=== PATIENT | male | born 1985 | race Caucasian/White ===

== ENCOUNTER 2021-02-09 11:02 | Emergency (ER) | payer MEDICARE, SELFPAY ==
[2021-02-09 11:08] VITALS: BP 115/65; PULSE 135; RESP 20; TEMP 36.6; O2SAT 95; BMI 18.8
--- NOTE | 2021-02-09 11:29 | ECG_ITS ---
Test Reason : TACHYCARDIA Blood Pressure : / mmHG Vent. Rate : 100 BPM Atrial Rate : 100 BPM P-R Int : 128 ms QRS Dur : 130 ms QT Int : 378 ms P-R-T Axes : 042 088 027 degrees QTc Int : 487 ms Normal sinus rhythm Right bundle branch block Abnormal ECG When compared with ECG of 13-JAN-2018 11:51, T wave inversion now evident in Anterior leads Referred By: Marybel Burkett Electronically Signed By:LEYLA KLEIN
--- NOTE | 2021-02-09 11:30 | ED.ALCOHOL ---
HPI - Alcohol General Chief Complaint: ETOH/Substance Use Stated Complaint: DETOX Time Seen by Provider: 02/09/21 11:21 Source: patient Mode of arrival: ambulatory Limitations: no limitations History of Present Illness HPI narrative: 35-year-old male to daily alcohol drinker, last drink was last night, presented today seeking detox from alcohol, patient had a history of alcohol withdrawal with hospitalization in the past, during the interview noted that patient has involuntary tremors and tachycardic. Patient declined any SI or HI or hallucination. Related Data Allergies Allergy/AdvReac Type Severity Reaction Status Date / Time No Known Drug Allergies Allergy Unknown UNKNOWN Unverified 08/08/20 19:26 [NO KNOWN DRUG ALLERGIES] Review of Systems Review of Systems: All other systems are reviewed and are negative Constitutional: Reports as per HPI and Reports no additional constitutional complaints Eyes: Reports as per HPI and Reports no additional eye complaints Reports system reviewed and no additional complaints, except as documented Cardiovascular: Reports as per HPI and Reports no additional cardiovascular complaints Respiratory: Reports as per HPI and Reports no additional respiratory complaints Gastrointestinal: Reports as per HPI and Reports no additional gastrointestinal complaints Genitourinary: Reports no additional female genitourinary complaints Musculoskeletal: Reports no additional musculoskeletal complaints Skin/Breast: Reports system reviewed and no additional complaints, except as docu Psychiatric: Reports no additional psychiatric complaints Endocrine: Reports no additional endocrine complaints Hematologic/Lymphatic: Reports no additional hematologic/lymphatic complaints Allergic/Immunologic: Reports no additional allergic/immunologic complaints Reports system reviewed and no additional complaints, except as documented and Reports Abnormal speech present PMFSH Past Medical History Medical History Alcohol abuse Anxiety COPD (chronic obstructive pulmonary disease) Depression Schizophrenia Social History Social History Alcohol intake: current Smoking Status: Current every day smoker Smoked in Last 30 Days: Yes Use of substances other than those prescribed or required for medical reasons: No Advance Directives: No Advance Directives Information Provided: No Physical Exam Vital Signs: Vital Signs: Last Vital Signs Temp 98.7 F 02/09/21 14:31 Pulse 86 02/09/21 14:31 Resp 13 02/09/21 14:31 BP 118/85 02/09/21 14:31 Pulse Ox 95 02/09/21 14:31 Body Mass Index 18.8 Vital signs have been reviewed as appeared to be correct. Blood pressure normal. Heart rate: Tachycardia. Respiration rate normal. Temperature normal. Oxygen saturation normal. Appearance: Alert. Oriented X3. No acute distress. Appear anxious Head: Normal external exam. Normocephalic. Atraumatic. No Serrano signs noted. No raccoon eyes noted Eyes: PERRLA. EOMI. Conjunctiva and sclera normal. Eyelids normal. ENT: TM's Normal. Pharynx normal. Uvula midline. Moist mucous membranes. No trismus noted. No drooling noted. No muffled voice noted. Neck: Normal inspection. Neck supple. FROM. No adenopathy. Thyroid Normal. No meningeal signs. No neck mass noted. CVS: Tachycardia. Heart sound normal. No murmurs noted. Pulses normal throughout. Respiratory: No respiratory distress. Painless inspiration. Breath sounds normal. No wheezes/rales/rhonchi noted. Chest nontender. No accessory muscle usage noted or decreased air movement noted. Abdomen: Soft and nontender. Bowel sounds normal in all 4 quadrants. No distention noted. No organomegaly noted. No visible injury noted. Back: No CVA tenderness. Full range of motion noted. Skin: Skin warm and dry. Normal skin color. Normal skin turgor. No rashes/lesions/lacerations noted. Extremities: Bilateral involuntarily tremors Neuro: Oriented X 3. No motor deficit. No sensory deficit. Reflexes normal. Course Course Course Narrative: 14:55. 35-year-old male who is chronic alcoholic, last drink was yesterday alcohol level less than 10, patient came in was seeking for detox, initially patient had a heart rate of 130, patient received 2 L of IV fluids now heart rate is normalizing, repeat physical exam show no sign of alcohol withdrawal at this point, patient was provided a list of detox places patient is trying to make phone calls from emergency department but requesting to go home and make calls from home. Patient is stable to be discharged. [facility] - Alcohol Lab Data Attestation: I reviewed the patient's lab results. Result diagrams: 02/09/21 12:08 02/09/21 12:08 Labs: Lab Results 02/09/21 02/09/21 02/09/21 Range/Units 12:08 12:08 12:08 WBC 8.1 (4.8-10.8) X10*3/uL RBC 4.50 L (4.60-5.80) X10*6/uL Hgb 13.5 L (14.0-18.0) g/dl Hct 39.3 L (42-52) % MCV 87.3 (80-98) fL MCH 30.0 (27.0-33.0) pg MCHC 34.4 (31.0-36.0) g/dl RDW 12.1 (11.0-16.0) % Plt Count 245 (160-400) X10*3/uL MPV 9.2 L (9.4-12.4) fL Immature Gran % (Auto) 0.1 (0.0-0.4) % Neut % (Auto) 51.6 (45-73) % Lymph % (Auto) 28.2 (20-40) % Dolores % (Auto) 7.8 (2-11) % Eos % (Auto) 11.8 H (0-4) % Baso % (Auto) 0.5 (0-2) % Lymph # (Auto) 2.3 (1.2-4.9) X10*3/uL [place] # (Auto) 0.6 (0.1-1.2) X10*3/uL Eos # (Auto) 1.0 H (0.0-0.4) X10*3/uL Baso # (Auto) 0.0 (0.0-0.2) X10*3/uL Abs Immat Gran (auto) 0.01 (0.00-0.03) X10*3/uL Absolute Neuts (auto) 4.2 (2.0-8.3) X10*3/uL Absolute Nucleated RBC 0.000 (0.0-0.012) X10*3/uL Nucleated RBC % (auto) 0.0 (0.0-0.2) /100WBC Sodium 139 (135-145) mmol/L Potassium 4.0 (3.3-5.1) mmol/L Chloride 102 (96-108) mmol/L Carbon Dioxide 25 (22-29) mmol/L Anion Gap 16 (12-20) BUN 7 L (9-16) mg/dL Creatinine 0.69 (0.5-1.4) mg/dL Estim Creat Clear Calc 115.0 Estimated GFR > 60 Random Glucose 123 H (60-115) mg/dL Calcium 8.9 (8.4-10.2) mg/dL Total Bilirubin < 0.2 (0.0-1.0) mg/dL Direct Bilirubin < 0.2 (0.0-0.5) mg/dL AST 47 H (5-37) U/L ALT 60 H (0-40) U/L Alkaline Phosphatase 69 (39-117) U/L Total Protein 6.6 (6.5-8.0) g/dL Albumin 4.0 (3.5-5.0) g/dL Lipase 8 (8-78) U/L Urine Color Urine Appearance Urine pH (5.0-8.0) Ur Specific [place] (1.005-1.025) Urine Protein (NEG-TRACE) MG/DL Urine Glucose (UA) (NEG) MG/DL Urine Ketones (NEG) MG/DL Urine Blood (NEG) Urine Nitrite (NEG) Ur Leukocyte Esterase (NEG) Ethyl Alcohol < 10 mg/dL 02/09/21 Range/Units 14:42 WBC (4.8-10.8) X10*3/uL RBC (4.60-5.80) X10*6/uL Hgb (14.0-18.0) g/dl Hct (42-52) % MCV (80-98) fL MCH (27.0-33.0) pg MCHC (31.0-36.0) g/dl RDW (11.0-16.0) % Plt Count (160-400) X10*3/uL MPV (9.4-12.4) fL Immature Gran % (Auto) (0.0-0.4) % Neut % (Auto) (45-73) % Lymph % (Auto) (20-40) % Dol[place] % (Auto) (2-11) % Eos % (Auto) (0-4) % Baso % (Auto) (0-2) % Lymph # (Auto) (1.2-4.9) X10*3/uL [place] # (Auto) (0.1-1.2) X10*3/uL Eos # (Auto) (0.0-0.4) X10*3/uL Baso # (Auto) (0.0-0.2) X10*3/uL Abs Immat Gran (auto) (0.00-0.03) X10*3/uL Absolute Neuts (auto) (2.0-8.3) X10*3/uL Absolute Nucleated RBC (0.0-0.012) X10*3/uL Nucleated RBC % (auto) (0.0-0.2) /100WBC Sodium (135-145) mmol/L Potassium (3.3-5.1) mmol/L Chloride (96-108) mmol/L Carbon Dioxide (22-29) mmol/L Anion Gap (12-20) BUN (9-16) mg/dL Creatinine (0.5-1.4) mg/dL Estim Creat Clear Calc Estimated GFR Random Glucose (60-115) mg/dL Calcium (8.4-10.2) mg/dL Total Bilirubin (0.0-1.0) mg/dL Direct Bilirubin (0.0-0.5) mg/dL AST (5-37) U/L ALT (0-40) U/L Alkaline Phosphatase (39-117) U/L Total Protein (6.5-8.0) g/dL Albumin (3.5-5.0) g/dL Lipase (8-78) U/L Urine Color YELLOW Urine Appearance CLEAR Urine pH 6.0 (5.0-8.0) Ur Specific [place] 1.015 (1.005-1.025) Urine Protein NEG (NEG-TRACE) MG/DL Urine Glucose (UA) NEG (NEG) MG/DL Urine Ketones NEG (NEG) MG/DL Urine Blood NEG (NEG) Urine Nitrite NEG (NEG) Ur Leukocyte Esterase NEG (NEG) Ethyl Alcohol mg/dL Discharge Plan Discharge Clinical Impression: Alcohol abuse Patient Disposition: Home, Self-Care Instructions: Abuse of Alcohol (ED) Additional Instructions: Call the list that was provided to the emergency department for detox programs. Referrals: Physician,Unknown [Primary Care Provider] - 2 days
[2021-02-09 11:51] VITALS: BP 113/67; PULSE 105; RESP 13; O2SAT 95
[2021-02-09 12:13] LABS: Basophils Percent Auto 0.5 % (0-2); Eosinophils Percent Auto 11.8 % (0-4); Hematocrit 39.3 % (42-52); Hemoglobin 13.5 g/dl (14.0-18.0); Imm Gran Abs Auto 0.01 X10*3/uL (0.00-0.03); Imm Gran Pct Auto 0.1 % (0.0-0.4); Lymphocytes Absolute Auto 2.3 X10*3/uL (1.2-4.9); Lymphocytes Percent Auto 28.2 % (20-40); MANUAL DIFF FLAG NO; Mean Corpuscular HGB Conc 34.4 g/dl (31.0-36.0); Mean Corpuscular Volume 87.3 fL (80-98); Mean Platelet Volume 9.2 fL (9.4-12.4); Monocytes Absolute Auto 0.6 X10*3/uL (0.1-1.2); Monocytes Percent Auto 7.8 % (2-11); Neutrophils Absolute Auto 4.2 X10*3/uL (2.0-8.3); Neutrophils Percent Auto 51.6 % (45-73); Platelet Count 245 X10*3/uL (160-400); Red Cell Distribution Width 12.1 % (11.0-16.0); White Blood Count 8.1 X10*3/uL (4.8-10.8)
[2021-02-09] MEDS: 0.9 % Sodium Chloride 1,000 ML 999 ML IVCONT (12:21)
--- NOTE | 2021-02-09 12:24 | PC.NURSE ---
pt presents to ED seeking detox for ETOH use. pt is alert and oriented x3, verbal response is sluggish but speaks in full sentences and is able to make needs known. eye contact appropriate during nurse assessment however pt stares off into space when not speaking with nurse. lung sounds clear bilaterally in all sharma although pt does have some nasal congestion. denies feeling short of breath. respiration rate is even and effort is non-labored. heart rate is tachy but even, heart sounds normal. bowel sounds active x4. pt denies SI/HI, denies any visual or auditory hallucinations at this time but states he feels tingling in both of his arms. when extending his arms and spreading his fingers apart, slight trembling noted in both hands. pt currently resting in bed in semi fowlers staring off into space. 1L normal saline currently infusing (20g in right AC) . pt currently on bedside monitor. pt aware of plan of care, no questions or concerns at this time. aware.
--- NOTE | 2021-02-09 12:32 | PC.NURSE ---
pt states he last had a drink last night, was unable to provide a time but stated that he was drinking beer
[2021-02-09 12:40] LABS: Alanine Aminotransferase 60 U/L (0-40); Alkaline Phosphatase 69 U/L (39-117); Anion Gap 16 (12-20); Aspartate Amino Transferase 47 U/L (5-37); Bilirubin Direct < 0.2 mg/dL (0.0-0.5); Bilirubin Total < 0.2 mg/dL (0.0-1.0); Blood Urea Nitrogen 7 mg/dL (9-16); Calcium 8.9 mg/dL (8.4-10.2); Carbon Dioxide 25 mmol/L (22-29); Chloride 102 mmol/L (96-108); Estimated Glomerular Filt Rate > 60; Glucose Random 123 mg/dL (60-115); Lipase 8 U/L (8-78); Sodium 139 mmol/L (135-145); Total Protein 6.6 g/dL (6.5-8.0)
[2021-02-09] MEDS: Thiamine HCL 200 MG/2 ML VIAL 100 MG IVPUSH (12:44)
[2021-02-09 12:57] VITALS: PULSE 97
[2021-02-09 12:59] LABS: Ethanol < 10 mg/dL
--- NOTE | 2021-02-09 13:10 | PC.NURSE ---
pt's father's lele pearson phone # [phone]).
[2021-02-09] MEDS: 0.9 % Sodium Chloride 1,000 ML 999 ML IV (13:49)
--- NOTE | 2021-02-09 13:53 | PC.NURSE ---
pt given detox list and [facility] [place], [place] phone to make calls for placement.
--- NOTE | 2021-02-09 14:12 | MHC.CARE ---
Consult with pt per request of Dr Burkett. Met with patient, who appeared at the time of our meeting, to still be somewhat under the influence as his eyes were partially closed and his speech slightly slurred. I continued the consult as it was a STAT request. Pt advised me that he had been a long time consumer of alcoholic beverage, and had been struggling with addiction for A long time . Pt stated that he had been in treatment for addiction before and did well but started back on it again . Pt advised me that he was presently seeing a therapist via phone/zoom meetings. I offered literature related to [facility] programs which he took. Pt appeared to be having difficulty focusing on the conversation but did accept the literature that was provided to him.
[2021-02-09 14:31] VITALS: BP 118/85; PULSE 86; RESP 13; TEMP 37.1; O2SAT 95
[2021-02-09 14:50] LABS: Glucose Urine UA NEG (NEG); Leukocyte Esterase Urine NEG (NEG); Nitrite Urine NEG (NEG); Specific Gravity - Urine 1.015 (1.005-1.025); Urine Blood NEG (NEG); Urine Ketones NEG (NEG); Urine Protein NEG (NEG-TRACE)
[2021-02-09 14:52] LABS: Appearance Urine CLEAR; Color Urine YELLOW
== END 2021-02-09 15:21 | disposition home or self-care (01) ==
PROVIDERS: Emergency Provider Emergency Medicine
DX: F10.20 Alcohol dependence, uncomplicated (principal); Y90.0 Blood alcohol level of less than 20 mg/100 ml; R00.0 Tachycardia, unspecified; F20.9 Schizophrenia, unspecified; J44.9 Chronic obstructive pulmonary disease, unspecified; F41.9 Anxiety disorder, unspecified; F17.200 Nicotine dependence, unspecified, uncomplicated
CPT/HCPCS: 36415; 80048; 80076; 80320; 81003; 83690; 85025; 93005; 96361; 96374; 96375; 99285; J3411

== ENCOUNTER 2023-04-24 11:03 | Inpatient (IN) | payer MEDICARE, MEDICAID, SELFPAY ==
[2023-04-24 11:07] VITALS: BP 140/80; PULSE 121; O2SAT 95; BMI 19.4
--- NOTE | 2023-04-24 11:40 | ED.GENADULT ---
HPI - General Adult General Chief complaint: Psychiatric Symptoms Stated complaint: CRISIS Time Seen by Provider: 04/24/23 11:20 Source: patient Mode of arrival: EMS Limitations: no limitations History of Present Illness HPI narrative: Patient is a 37-year-old male with history of alcohol use disorder, COPD, anxiety, depression, and schizophrenia presenting with suicidal ideation without a plan. He denies any homicidal ideation, visual or auditory hallucinations. He reports drinking alcohol daily, typically 10-12 beers and occasionally wine. He denies drug use. He denies history of seizures related to alcohol detox. He does report history of other alcohol withdrawl symptoms in the past. He denies any current physical complaints. MD complaint: suicidal ideation Related Data Home Medications Medication Instructions Recorded Confirmed Invega Sustenna 235 mg IM QMONTH 04/24/23 04/24/23 benztropine 1 mg PO BID 04/24/23 04/24/23 chlorpromazine 50 mg tablet 50 mg PO TID 04/24/23 04/24/23 naltrexone 50 mg PO DAILY 04/24/23 04/24/23 perphenazine 8 mg tablet 8 mg PO BID 04/24/23 04/24/23 trazodone 100 mg tablet 100 mg PO BEDTIME PRN Insomnia 04/24/23 04/24/23 Allergies Allergy/AdvReac Type Severity Reaction Status Date / Time No Known Drug Allergies Allergy Unknown UNKNOWN Unverified 04/24/23 11:56 [NO KNOWN DRUG ALLERGIES] Review of Systems Review of Systems: As per HPI Yes all other systems are reviewed and are negative Constitutional: Constitutional: Reports as per HPI PMF Past Medical History Medical History Alcohol abuse Anxiety COPD (chronic obstructive pulmonary disease) Depression Schizophrenia Social History Social History Alcohol intake: current Alcohol intake frequency: 3 or more drinks per day Alcohol type: beer, wine and hard liquor Smoked in Last 30 Days: Yes Use of substances other than those prescribed or required for medical reasons: Unknown Substance Use Type: Unknown Last Used Substance: Just Prior to Admission Any prior treatment program specific to substance use: Yes (Detox) Advance Directives: No Healthcare Proxy: No Guardian: No Physical Exam ED Vital Signs: Vital Signs - 24 hr 04/24/23 11:07 04/24/23 13:01 04/24/23 18:15 Temperature 98.8 F 97.3 F Pulse Rate 113 H 83 Respiratory Rate 18 18 Blood Pressure 119/89 134/82 Pulse Oximetry 91 L 96 Oxygen Delivery Method Room Air Room Air Room Air 04/25/23 05:51 Temperature 97.2 F Pulse Rate 115 H Respiratory Rate 16 Blood Pressure 127/94 H Pulse Oximetry 92 Oxygen Delivery Method Room Air BMI result Body Mass Index 19.4 Vital signs have been reviewed and appear to be correct. Blood pressure normal. Heart rate tachycardic. Respiratory rate normal. Temperature normal. Oxygen saturation low, patient has history of COPD and states this is baseline. Const General: cooperative, healthy appearing and no acute distress Orientation/consciousness: oriented to person, oriented to place, oriented to time and patient oriented x3 Limitations: no limitations HENMT Head: Yes normocephalic and Yes atraumatic Ears: external ears normal General nose exam: Normal external nose present Face and sinus: Yes face symmetric Mouth: oropharynx normal and moist mucous membranes Throat: Yes uvula midline Eyes Pupils: Equal, round and reactive pupils present Neck Neck: Yes normal visual inspection and Yes supple Resp Effort & Inspection: normal respiratory effort and able to speak in complete sentences Auscultation: clear to auscultation bilaterally Cardio Rate: regular rate Rhythm: regular rhythm Heart sounds: S1 normal heart sound present and S2 normal heart sound present GI Palpation (GI): Soft to palpation and nontender Auscultation: normoactive bowel sounds General: Yes no CVA tenderness Back/Spine/Pelvis Back: no CVA tenderness Skin General skin exam: elasticity normal and turgor normal Neuro General: oriented to person, oriented to place, oriented to time, patient oriented x3, moves all extremities, no focal motor deficits and CN's II-XI intact bilaterally Cranial nerves: Yes Equal, round and reactive pupils present Cognition (Neuro): normal cognition Extrem General: Yes full ROM, Yes no pedal edema and Yes no calf tenderness Psych Appearance: grossly normal Mental Status: mental status grossly normal Speech and movement: Normal speech and movement present Affect: normal affect Attitude: cooperative Thought process: Normal thought process present Thought content: Suicidality present, no homicidality, no delusions, no hallucinations and Depressive thoughts present Insight: Fair insight present (Psych) Judgement: Fair judgement present (Psych) Course Course Course Narrative: 12:45 ETOH 148, mild leukocytosis, patient afebrile and denies any complaints. Feel patient can be medically cleared at this time and placed on physician obs pending Care team eval. 15:55 Per [place] from Care team patient is agreeable to voluntary admission. Reevaluation(s) Reevaluation #1: Patient denies any active complaints vital stable vomited once after orange juice but now able to drink coffee and liquids no abdominal pain awaiting for placement Time: 09:11 Medications Administered Discontinued Medications Generic Name Dose Route Start Last Admin Trade Name Freq PRN Reason Stop Dose Admin Lorazepam 1 mg 04/25/23 05:53 04/25/23 06:19 Lorazepam 1 Mg Tablet PO 04/25/23 05:54 1 mg ONCE ONE Administration Medical Decision Making Medical Decision Making [facility] Narrative: Patient is a 37-year-old male with history of alcohol use disorder, anxiety, depression, and schizophrenia presenting with suicidal ideation without a plan, also reports drinking alcohol daily with last drink this am. On exam, patient is awake, A+Ox3, normal neurological exam without focal deficits, nontoxic appearing, calm and cooperative, endorsing suicidal ideation without a plan, denies HI or hallucinations. Will obtain basic labs, continuous safety checks, CIWA assessments, consult to Care team. Differential Diagnosis Differential Diagnoses: The differential diagnosis associated with the presentation includes suicidal ideation, acute anxiety, schizophrenia, alcohol use disorder Lab Data 04/24/23 12:09 04/24/23 12:09 Labs: Lab Results 04/24/23 04/24/23 04/24/23 Range/Units 11:37 11:37 11:37 WBC (4.8-10.8) X10*3/uL RBC (4.60-5.80) X10*6/uL Hgb (14.0-18.0) g/dl Hct (42.0-52.0) % MCV (80.0-98.0) fL MCH (27.0-33.0) pg MCHC (31.0-36.0) g/dl RDW (11.0-16.0) % Plt Count (160-400) X10*3/uL MPV (9.4-12.4) fL Immature Gran % (Auto) (0.0-0.4) % Neut % (Auto) (45-73) % Lymph % (Auto) (20-40) % [place] % (Auto) (2-11) % Eos % (Auto) (0-4) % Baso % (Auto) (0-2) % Lymph # (Auto) (1.2-4.9) X10*3/uL [place] # (Auto) (0.1-1.2) X10*3/uL Eos # (Auto) (0.0-0.4) X10*3/uL Baso # (Auto) (0.0-0.2) X10*3/uL Abs Immat Gran (auto) (0.00-0.03) X10*3/uL Absolute Neuts (auto) (2.0-8.3) x10*3/uL Absolute Nucleated RBC (0.0-0.012) X10*3/uL Nucleated RBC % (auto) (0.0-0.2) /100WBC Sodium (135-145) mmol/L Potassium (3.3-5.1) mmol/L Chloride (96-108) mmol/L Carbon Dioxide (22-29) mmol/L Anion Gap (12-20) BUN (9-16) mg/dL Creatinine (0.5-1.4) mg/dL Estim Creat Clear Calc Estimated GFR Random Glucose (60-115) mg/dL Calcium (8.4-10.2) mg/dL Total Bilirubin (0.0-1.0) mg/dL AST (5-37) U/L ALT (0-40) U/L Alkaline Phosphatase (39-117) U/L Total Protein (6.5-8.0) g/dL Albumin (3.5-5.0) g/dL Urine Color Yellow Urine Appearance Clear Urine pH 7.0 (5.0-9.0) Ur Specific [place] 1.010 (1.005-1.025) Urine Protein Negative (Neg-Trace) mg/dL Urine Glucose (UA) Negative (Negative) mg/dL Urine Ketones Negative (Negative) mg/dL Urine Blood Negative (Negative) Urine Nitrite Negative (Negative) Ur Leukocyte Esterase Negative (Negative) Urine RBC 0-2 (0-2) /HPF Urine WBC 0-5 (0-5) /HPF Ur Squamous Epith Cells 0-2 (0-2) /HPF Urine Bacteria None Seen (None Seen) Hyaline Casts 0-2 (0-2) /LPF Urine Opiates Screen Not Detected (Not Detect) Urine Fentanyl Screen Not Detected (Not Detect) Ur Barbiturates Screen Not Detected (Not Detect) Ur Phencyclidine Scrn Not Detected (Not Detect) Ur Amphetamines Screen Not Detected (Not Detect) U Benzodiazepines Scrn Not Detected (Not Detect) Urine Cocaine Screen Not Detected (Not Detect) U Marijuana (THC) Screen Not Detected (Not Detect) Ethyl Alcohol mg/dL COVID-19 (TAMAR) Negative (Negative) COVID-19 Clin Com See Note 04/24/23 04/24/23 Range/Units 12:09 12:09 WBC 12.9 H (4.8-10.8) X10*3/uL RBC 4.95 (4.60-5.80) X10*6/uL Hgb 15.1 (14.0-18.0) g/dl Hct 43.1 (42.0-52.0) % MCV 87.1 (80.0-98.0) fL MCH 30.5 (27.0-33.0) pg MCHC 35.0 (31.0-36.0) g/dl RDW 12.4 (11.0-16.0) % Plt Count 259 (160-400) X10*3/uL MPV 9.1 L (9.4-12.4) fL Immature Gran % (Auto) 0.4 (0.0-0.4) % Neut % (Auto) 82.3 H (45-73) % Lymph % (Auto) 10.9 L (20-40) % [place] % (Auto) 5.0 (2-11) % Eos % (Auto) 1.0 (0-4) % Baso % (Auto) 0.4 (0-2) % Lymph # (Auto) 1.4 (1.2-4.9) X10*3/uL [place] # (Auto) 0.6 (0.1-1.2) X10*3/uL Eos # (Auto) 0.1 (0.0-0.4) X10*3/uL Baso # (Auto) 0.1 (0.0-0.2) X10*3/uL Abs Immat Gran (auto) 0.05 H (0.00-0.03) X10*3/uL Absolute Neuts (auto) 10.6 H (2.0-8.3) x10*3/uL Absolute Nucleated RBC 0.000 (0.0-0.012) X10*3/uL Nucleated RBC % (auto) 0.0 (0.0-0.2) /100WBC Sodium 139 (135-145) mmol/L Potassium 3.8 (3.3-5.1) mmol/L Chloride 103 (96-108) mmol/L Carbon Dioxide 25 (22-29) mmol/L Anion Gap 15 (12-20) BUN 7 L (9-16) mg/dL Creatinine 0.75 (0.5-1.4) mg/dL Estim Creat Clear Calc 103.8 Estimated GFR > 60 Random Glucose 106 (60-115) mg/dL Calcium 9.4 (8.4-10.2) mg/dL Total Bilirubin 0.3 (0.0-1.0) mg/dL AST 40 H (5-37) U/L ALT 43 H (0-40) U/L Alkaline Phosphatase 89 (39-117) U/L Total Protein 7.6 (6.5-8.0) g/dL Albumin 4.5 (3.5-5.0) g/dL Urine Color Urine Appearance Urine pH (5.0-9.0) Ur Specific [place] (1.005-1.025) Urine Protein (Neg-Trace) mg/dL Urine Glucose (UA) (Negative) mg/dL Urine Ketones (Negative) mg/dL Urine Blood (Negative) Urine Nitrite (Negative) Ur Leukocyte Esterase (Negative) Urine RBC (0-2) /HPF Urine WBC (0-5) /HPF Ur Squamous Epith Cells (0-2) /HPF Urine Bacteria (None Seen) Hyaline Casts (0-2) /LPF Urine Opiates Screen (Not Detect) Urine Fentanyl Screen (Not Detect) Ur Barbiturates Screen (Not Detect) Ur Phencyclidine Scrn (Not Detect) Ur Amphetamines Screen (Not Detect) U Benzodiazepines Scrn (Not Detect) Urine Cocaine Screen (Not Detect) U Marijuana (THC) Screen (Not Detect) Ethyl Alcohol 148 mg/dL COVID-19 (TAMAR) (Negative) COVID-19 Clin Com Discharge Plan Discharge Clinical Impression: Suicidal ideation Patient Disposition: Still a Patient Prescriptions: No Action Invega Sustenna 235 mg IM QMONTH Patient Comments: Purvi P/U 04/24/23 Last dose about a month ago benztropine 1 mg PO BID Rx Instructions: Purvi last P/U 04/24/23 naltrexone 50 mg PO DAILY Rx Instructions: Last picked up 04/20/23 Pt reports not taking trazodone 100 mg Tablet 100 mg PO BEDTIME PRN (Reason: Insomnia) Rx Instructions: last picked up at [facility] 04/12/23 perphenazine 8 mg Tablet 8 mg PO BID Rx Instructions: last P/U at [facility] 04/12/23 chlorpromazine 50 mg Tablet 50 mg PO TID Rx Instructions: last P/U 03/03/23 Pt doesn't think he take this anymore Interventions: [place]-Suicide Risk Severity Scale Last Done: 04/25/23 04:11
[2023-04-24 11:50] LABS: Appearance Urine Clear; Color Urine Yellow; Glucose Urine UA Negative (Negative); Leukocyte Esterase Urine Negative (Negative); Nitrite Urine Negative (Negative); Urine Blood Negative (Negative); Urine Ketones Negative (Negative); Urine Protein Negative (Neg-Trace)
[2023-04-24 11:52] LABS: Bacteria Urine None Seen (None Seen); Hyaline Casts Urine 0-2 /LPF (0-2); RBC Urine 0-2 /HPF (0-2); Squamous Epithelial Cell Urine 0-2 /HPF (0-2); WBC Urine 0-5 /HPF (0-5)
[2023-04-24 11:59] LABS: Amphetamine Screen Urine Not Detected (Not Detect); Barbiturates, Urine Not Detected (Not Detect); Benzodiazepines Screen Urine Not Detected (Not Detect); Cannabinoid Screen Urine Not Detected (Not Detect); Cocaine Screen Urine Not Detected (Not Detect); Fentanyl, urine Not Detected (Not Detect); Opiate Screen Urine Not Detected (Not Detect); Phencyclidine Screen Urine Not Detected (Not Detect)
[2023-04-24 12:14] LABS: MANUAL DIFF FLAG NO
[2023-04-24 12:16] LABS: Basophils Absolute Auto 0.1 X10*3/uL (0.0-0.2); Basophils Percent Auto 0.4 % (0-2); Eosinophils Absolute Auto 0.1 X10*3/uL (0.0-0.4); Hematocrit 43.1 % (42.0-52.0); Hemoglobin 15.1 g/dl (14.0-18.0); Imm Gran Abs Auto 0.05 X10*3/uL (0.00-0.03); Imm Gran Pct Auto 0.4 % (0.0-0.4); Lymphocytes Absolute Auto 1.4 X10*3/uL (1.2-4.9); Lymphocytes Percent Auto 10.9 % (20-40); Mean Corpuscular Hemoglobin 30.5 pg (27.0-33.0); Mean Corpuscular Volume 87.1 fL (80.0-98.0); Mean Platelet Volume 9.1 fL (9.4-12.4); Monocytes Absolute Auto 0.6 X10*3/uL (0.1-1.2); Neutrophils Absolute Auto 10.6 x10*3/uL (2.0-8.3); Neutrophils Percent Auto 82.3 % (45-73); Platelet Count 259 X10*3/uL (160-400); Red Blood Count 4.95 X10*6/uL (4.60-5.80); Red Cell Distribution Width 12.4 % (11.0-16.0); White Blood Count 12.9 X10*3/uL (4.8-10.8)
[2023-04-24 12:20] LABS: COVID-19 Test Negative (Negative); IDNOW Serial# 55D5AD1C
[2023-04-24 12:29] LABS: Alanine Aminotransferase 43 U/L (0-40); Albumin Level 4.5 g/dL (3.5-5.0); Alkaline Phosphatase 89 U/L (39-117); Anion Gap 15 (12-20); Aspartate Amino Transferase 40 U/L (5-37); Bilirubin Total 0.3 mg/dL (0.0-1.0); Blood Urea Nitrogen 7 mg/dL (9-16); Calcium 9.4 mg/dL (8.4-10.2); Carbon Dioxide 25 mmol/L (22-29); Chloride 103 mmol/L (96-108); Creatinine Clr Calc Pharmacy 103.8; Estimated Glomerular Filt Rate > 60; Ethanol 148 mg/dL; Glucose Random 106 mg/dL (60-115); Potassium 3.8 mmol/L (3.3-5.1); Sodium 139 mmol/L (135-145); Total Protein 7.6 g/dL (6.5-8.0)
--- NOTE | 2023-04-24 12:57 | PC.NURSE ---
SI no plan, Reports AH in the past but not at this time. Confirmed medications with Rohityaima Houston.
[2023-04-24 13:01] VITALS: BP 119/89; PULSE 113; RESP 18; TEMP 37.1; O2SAT 91
--- NOTE | 2023-04-24 16:50 | PC.NURSE ---
Pt slept most of this shift. Ate meals. No dangerous behaviors noted.
[2023-04-24 18:15] VITALS: BP 134/82; PULSE 83; RESP 18; TEMP 36.3; O2SAT 96
[2023-04-25 05:51] VITALS: BP 127/94; PULSE 115; RESP 16; TEMP 36.2; O2SAT 92
[2023-04-25] MEDS: LORazepam 1 MG TABLET PO (06:19)
--- NOTE | 2023-04-25 08:06 | PC.NURSE ---
Ate Breakfast, vomited large amt. Claims its the OJ and Milk. Back to bed, resting at this time.
[2023-04-25 09:18] VITALS: BP 140/98; PULSE 88; RESP 16; TEMP 36.5; O2SAT 95
[2023-04-25 13:38] VITALS: BP 136/104; PULSE 82; RESP 16; TEMP 36.3; O2SAT 94
--- NOTE | 2023-04-25 13:52 | MHC.CARE ---
CARE team MSU completed. Pt continues to meet criteria for inpt psychiatric level of care. Statewide bedsearch exhausted.
[2023-04-25 16:07] VITALS: BP 135/89; PULSE 94; RESP 18; TEMP 36.1; O2SAT 96
[2023-04-25 20:22] VITALS: BP 133/92; PULSE 74; RESP 18; TEMP 36.7; O2SAT 94
--- NOTE | 2023-04-26 | ECG_ITS ---
Test Reason : CHECKING FOR PROLONGED QT Blood Pressure : / mmHG Vent. Rate : 094 BPM Atrial Rate : 094 BPM P-R Int : 112 ms QRS Dur : 138 ms QT Int : 386 ms P-R-T Axes : 061 096 039 degrees QTc Int : 482 ms Normal sinus rhythm Right bundle branch block Abnormal ECG When compared with ECG of 09-FEB-2021 11:54, T wave inversion no longer evident in Anterior leads Referred By: Jim Cruz Electronically Signed By:Tod English
--- NOTE | 2023-04-26 03:27 | PC.NURSE ---
pt has been sleeping throughout night, no apparent distress, respirations even and unlabored, skin pwd continue plan of care for inpatient admission bed search
[2023-04-26 06:24] VITALS: BP 127/94; PULSE 92; RESP 16; TEMP 36.8; O2SAT 93
--- NOTE | 2023-04-26 07:09 | PC.NURSE ---
patient appears to remain asleep at present respirations are even and unlabored patient appears in no distress
[2023-04-26 12:51] VITALS: BP 144/101; PULSE 98; TEMP 36.1; O2SAT 96
--- NOTE | 2023-04-26 17:05 | PC.NURSE ---
Nurse to Nurse given to medical staff services coordinator
[2023-04-26 19:30] VITALS: BP 136/84; PULSE 82; TEMP 36
[2023-04-26] MEDS: LORazepam 1 MG TABLET PO (19:52)
[2023-04-26] MEDS: Acetaminophen 325 MG TABLET 650 MG PO (19:52)
[2023-04-26] MEDS: Nicotine Polacrilex 2 MG GUM 4 MG BUCCAL (19:53)
[2023-04-26] MEDS: Benztropine Mesylate 1 MG TABLET PO (22:15)
[2023-04-26] MEDS: Perphenazine 8 MG TABLET PO (22:16)
--- NOTE | 2023-04-27 00:36 | PC.ADMIT ---
A single, white, Anguillan-speaking male, aged 37 years was admitted to [facility] as [facility] at 1905 following referral from [facility] ED and CARE team. Pt is not known to but was assessed by crisis 5 years ago. Pt reports a number of previous psychiatric and Etoh related admissions in the past. On 04/24/23 pt was brought to [facility] ED via EMS after pt's father called police because pt was acting irrationally. Pt was screaming and yelling for no apparent reason and not making sense. During assessment at ED pt stated that he was suicidal with no plan. Pt stated he wishes he were no longer here . When asked if he had a plan pt stated he didn't have one yet . Pt denied HI and AH/VH during crisis assessment. Pt denies substance use, but reports drinking 12 or more drinks daily. HERNANDEZ was negative, BAL was 148. Pt reports he takes his prescribed medications, but his grandmother is worried about medication compliance. Pt was calm and cooperative during admission. Pt makes some eyecontact, speaks softly and participated well in admission. Pt verbalized hoping to d/c as soon as possible. During admission assessment pt denied SI/HI and says can seek help from staff if needed. Pt denies AV/AH and rates anxiety and depression 05/01. Pt reports mild withdrawal symptoms, scoring 9 on the CIWA scale. Pt had elevated BP in ED. Pt reported mild headache, feeling sweaty, and irritation from light. Pt reports sleeping well and appetite and weight unchanged by depressive symptoms. Pt lives with father and grandparents in a house in [place]; housing is stable. Pt does not have a PCP, but uses [facility] for medications and therapy. Medical issues include COPD and right bundle branch block found in EKG on 04/24/23. Pt took HS medications and is resting in room at this time. [id number] done, admission orders obtained, initial treatment plan and safety tool are done, but need to be signed.
[2023-04-27] MEDS: Nicotine Polacrilex Lozenge 4 MG LOZENGE BUCCAL ×6 (03:03→18:57)
[2023-04-27] MEDS: hydrOXYzine HCL 25 MG TABLET PO ×2 (03:03→14:14)
[2023-04-27] MEDS: Perphenazine 8 MG TABLET PO ×2 (08:20→21:41)
[2023-04-27] MEDS: Naltrexone HCl 50 MG TABLET PO (08:20)
[2023-04-27] MEDS: Nicotine 21 MG PATCH.TD24 TRANSDERMA (08:20)
[2023-04-27] MEDS: Benztropine Mesylate 1 MG TABLET PO ×2 (08:20→21:41)
[2023-04-27 08:32] VITALS: BP 133/101; PULSE 98; RESP 16; TEMP 36.6; O2SAT 95
[2023-04-27 09:28] LABS: Estimated Average Glucose 111 mg/dL; Hemoglobin A1C 151.1539 umol/L; Hemoglobin A1c % 5.5 %
[2023-04-27 09:36] LABS: Alanine Aminotransferase 34 U/L (0-40); Albumin Level 4.4 g/dL (3.5-5.0); Alkaline Phosphatase 78 U/L (39-117); Anion Gap 12 (12-20); Aspartate Amino Transferase 26 U/L (5-37); Bilirubin Total 0.8 mg/dL (0.0-1.0); Blood Urea Nitrogen 10 mg/dL (9-16); Carbon Dioxide 29 mmol/L (22-29); Chloride 101 mmol/L (96-108); Cholesterol 132 mg/dL; Creatinine Clr Calc Pharmacy 119.7; Estimated Glomerular Filt Rate > 60; Glucose Fasting 86 mg/dL (60-99); HDL Cholesterol 64 mg/dL; LDL Cholesterol Calculated 59 mg/dl; Potassium 4.3 mmol/L (3.3-5.1); Sodium 138 mmol/L (135-145); Total Protein 7.5 g/dL (6.5-8.0); Triglycerides 48 mg/dL
[2023-04-27 10:04] LABS: Folate 8.2 ng/mL (> or = 4.0); Free T4 (Free Thyroxine) 0.98 ng/dL (0.71-1.85); Vitamin B12 416 pg/mL (200-900)
--- NOTE | 2023-04-27 10:13 | P.HPPSP_ITS ---
HPI Date of Service: 04/27/23 Chief Complaint: SI Sources of Information: patient interviewed, chart reviewed and crisis/core team assessment reviewed HPI Healthcare Proxy: No Narrative: The patient is a 37-year-old male reported history of schizoaffective disorder alcohol dependence who was brought to the emergency room by ambulance after his father had called the police department for assistance. The patient had been agitated at home and reportedly making suicidal statements. The patient has been drinking at least a 12 pack day. Patient has been increasingly depressed an ongoing way hopeless helpless intermittent the despondent word about his grandfather who was recently placed in a usp the patient is seen at [facility] his nurse practitioner is Babak Uribe the patient is on a complicated regimen of medication that includes a monthly injectable of Invega sustain a perphenazine 8 mg twice a day and was recently reportedly restarted on Thorazine 50 mg 3 times a day [facility] Medical History Alcohol abuse Anxiety COPD (chronic obstructive pulmonary disease) Depression Schizophrenia Diagnostics Vital Signs (24Hr): Vital Signs - 24 hr 04/26/23 12:51 04/26/23 19:30 04/27/23 08:32 Temperature 97.0 F 96.8 F 97.8 F Pulse Rate 98 82 98 Respiratory Rate 16 Blood Pressure 144/101 H 136/84 133/101 H Pulse Oximetry 96 95 Oxygen Delivery Method Room Air Room Air BMI result Body Mass Index 19.4 Labs 04/24/23 12:09 04/27/23 08:26 Labs: Laboratory Results - last 48 hr 04/27/23 04/27/23 08:26 08:26 Sodium 138 Potassium 4.3 Chloride 101 Carbon Dioxide 29 Anion Gap 12 BUN 10 Creatinine 0.65 Estim Creat Clear Calc 119.7 Estimated GFR > 60 Fasting Glucose 86 Estimat Average Glucose 111 Hemoglobin A1c % 5.5 Calcium 10.0 D Total Bilirubin 0.8 AST 26 ALT 34 Alkaline Phosphatase 78 Total Protein 7.5 Albumin 4.4 Triglycerides 48 Cholesterol 132 LDL Cholesterol, Calc 59 HDL Cholesterol 64 Vitamin B12 416 Folate 8.2 TSH 1.10 Free T4 0.98 Meds/Allergies Meds Home Medications Medication Instructions Recorded Confirmed Type Invega Sustenna 235 mg IM QMONTH 04/24/23 04/24/23 History benztropine 1 mg PO BID 04/24/23 04/24/23 History chlorpromazine 50 mg tablet 50 mg PO TID 04/24/23 04/24/23 History naltrexone 50 mg PO DAILY 04/24/23 04/24/23 History perphenazine 8 mg tablet 8 mg PO BID 04/24/23 04/24/23 History trazodone 100 mg tablet 100 mg PO BEDTIME PRN Insomnia 04/24/23 04/24/23 History Allergies Allergies Allergy/AdvReac Type Severity Reaction Status Date / Time No Known Drug Allergies Allergy Unknown UNKNOWN Unverified 04/24/23 11:56 [NO KNOWN DRUG ALLERGIES] Assessment & Plan Certification I certify that partial hospital treatment is medically necessary due to the symptoms and problems resulting from the patient's mental illness and the failure to treat the patient at the partial hospital level of care would likely result in the patient requiring inpatient psychiatric care which could not be prevented at a less intensive level of care. Time Spent With Patient Time: Total time managing care of this patient today ____ minutes.
[2023-04-27] MEDS: LORazepam 1 MG TABLET 2 MG PO (11:24)
[2023-04-27] MEDS: Thiamine HCL 100 MG TABLET PO (11:24)
[2023-04-27] MEDS: Folic Acid 1 MG TABLET PO (11:24)
--- NOTE | 2023-04-27 12:22 | P.HPPS_ITS ---
HPI Date of Service: 04/27/23 Chief Complaint: SI Sources of Information: patient interviewed, chart reviewed and crisis/core team assessment reviewed HPI Subjective Notes: Amador Warning and Conditional Voluntary Narrative: The patient is a 37-year-old male reported history of schizoaffective disorder alcohol dependence who was brought to the emergency room by ambulance after his father had called the police department for assistance. The patient had been agitated at home and reportedly making suicidal statements. The patient has been drinking at least a 12 pack day. Patient has been increasingly depressed an ongoing way hopeless helpless intermittent the despondent word about his grandfather who was recently placed in a skilled nursing the patient is seen at [facility] his nurse practitioner is Babak Uribe the patient is on a complicated regimen of medication that includes a monthly injectable of Invega sustain a perphenazine 8 mg twice a day and was recently reportedly restarted on Thorazine 50 mg 3 times a day the patient has been on Depakote in the past. He denies ongoing paranoia or hallucinations he does describe mood instability but not classic jarod. The patient denies active suicidal plan Past Psychiatric History: Patient has a history of past psychiatric hospitalizations question of schizoaffective disorder he is on social security disability history of past psychiatric hospitalization history of suicidality denies significant suicide attempts He has been on Campral in the past naltrexone Patient has had been treated in the past with the Depakote and sertraline last hospitalization here in 2018 long history of psychiatric hospitalizations Medical Evaluation Reviewed: Yes Reported history of COPD patient in alcohol withdrawal he denies any shortness breath PMFSH Medical History (Updated 04/27/23 @ 12:33 by Levy Murry MD) Alcohol abuse Anxiety COPD (chronic obstructive pulmonary disease) Depression Schizoaffective disorder, depressive type Schizophrenia Family History: No reported clear history of psychiatric illness grandfather may have recently been placed in a skilled nursing Social History: Patient is unemployed not no children. He is on security disability. Was born in [place] lives with his father and grandparents and was [place]. Substance History: Long history of intermittent alcohol dependence with some periods of sobriety History of detox admissions Diagnostics Vital Signs (24Hr): Vital Signs - 24 hr 04/26/23 12:51 04/26/23 19:30 04/27/23 08:32 Temperature 97.0 F 96.8 F 97.8 F Pulse Rate 98 82 98 Respiratory Rate 16 Blood Pressure 144/101 H 136/84 133/101 H Pulse Oximetry 96 95 Oxygen Delivery Method Room Air Room Air BMI result Body Mass Index 19.4 Labs 04/24/23 12:09 04/27/23 08:26 Labs: Laboratory Results - last 48 hr 04/27/23 04/27/23 08:26 08:26 Sodium 138 Potassium 4.3 Chloride 101 Carbon Dioxide 29 Anion Gap 12 BUN 10 Creatinine 0.65 Estim Creat Clear Calc 119.7 Estimated GFR > 60 Fasting Glucose 86 Estimat Average Glucose 111 Hemoglobin A1c % 5.5 Calcium 10.0 D Total Bilirubin 0.8 AST 26 ALT 34 Alkaline Phosphatase 78 Total Protein 7.5 Albumin 4.4 Triglycerides 48 Cholesterol 132 LDL Cholesterol, Calc 59 HDL Cholesterol 64 Vitamin B12 416 Folate 8.2 TSH 1.10 Free T4 0.98 Meds/Allergies Meds Home Medications Medication Instructions Recorded Confirmed Type Invega Sustenna 235 mg IM QMONTH 04/24/23 04/24/23 History benztropine 1 mg PO BID 04/24/23 04/24/23 History chlorpromazine 50 mg tablet 50 mg PO TID 04/24/23 04/24/23 History naltrexone 50 mg PO DAILY 04/24/23 04/24/23 History perphenazine 8 mg tablet 8 mg PO BID 04/24/23 04/24/23 History trazodone 100 mg tablet 100 mg PO BEDTIME PRN Insomnia 04/24/23 04/24/23 History Allergies Allergies Allergy/AdvReac Type Severity Reaction Status Date / Time No Known Drug Allergies Allergy Unknown UNKNOWN Unverified 04/24/23 11:56 [NO KNOWN DRUG ALLERGIES] Mental Status Exam Mental Status Exam Patient Appearance: Disheveled Patient Orientation: Person and Place Level of Consciousness: Awake and Appropriate Patient Behavior: Cooperative and Restless Mood Description: Constricted, Depressed and Apprehensive Affect Description: Constricted, Flat and Apprehensive Ability to Follow Directions: Good Speech Pattern: Clear and Impoverished Hallucinations: None Delusions: Not Present Thought Process: Rumination Thought Content: positive for Poverty of Content Depressive Symptoms: Increased Anxiety, Diff. Making Decisions, Increased Irritability, Loss of Int. in Activity, Feelings of Worthlessness, Thoughts of /Suicide, Loss of Energy and Difficulty Concentrating Abnormal Motor Activity Signs and Symptoms: Tremors Judgement: Fair Judgement and Insight: Could not really explain behavior prior to admission he does except he has mental illness he does accept need for treatment for his alcohol dependence Assessment & Plan Assessment & Plan (1) Schizoaffective disorder, depressive type: Status: Acute Code(s): F25.1 - Schizoaffective disorder, depressive type (2) Alcohol use disorder, severe, dependence: Status: Acute Code(s): F10.20 - Alcohol dependence, uncomplicated Plan Patient with long history of mood instability has been on Depakote sertraline in the past currently on Invega perphenazine and Thorazine had recently been added. Re-evaluate need for mood stabilizing agents and relationship of patient's mood disorder with his significant alcohol use which is certainly a contributing factor to mood instability and depression. Patient on CIWA with lorazepam for withdrawal continue Invega perphenazine get additional history from family outpatient providers [facility] coordinate care question step-down perhaps to partial hospital type setting evaluate safety patient denies active SI no reported history of withdrawal seizures according to the patient Patient educated on: diagnosis, medication risk/benefits, substance abuse and therapeutic strategies Informed Consent: understands Reason for continued inpatient stay Substantial Risk for: harm to self, inability to function and rapid decompensation Statement Statement: I have reviewed the history and physical and performed a pertinent examination on my patient. No changes have occurred unless specified. If the History and Physical was not performed prior to admission, the Hospitalist's service will be consulted for completing the admission physical. Time Spent With Patient Time: Total time managing care of this patient today __60__ minutes.
[2023-04-27 17:45] VITALS: BP 143/87; PULSE 110; TEMP 36.3
[2023-04-27] MEDS: Acetaminophen 325 MG TABLET 650 MG PO (17:58)
[2023-04-27] MEDS: LORazepam 1 MG TABLET PO ×2 (17:58→21:42)
[2023-04-28] MEDS: Nicotine Polacrilex Lozenge 4 MG LOZENGE BUCCAL ×2 (01:40→19:58)
[2023-04-28] MEDS: Acetaminophen 325 MG TABLET 650 MG PO ×2 (03:20→13:14)
[2023-04-28] MEDS: LORazepam 1 MG TABLET PO ×2 (03:20→21:19)
[2023-04-28] MEDS: Perphenazine 8 MG TABLET PO ×2 (08:45→21:18)
[2023-04-28] MEDS: Benztropine Mesylate 1 MG TABLET PO ×2 (08:45→21:19)
[2023-04-28] MEDS: Nicotine 21 MG PATCH.TD24 TRANSDERMA (08:46)
[2023-04-28] MEDS: Folic Acid 1 MG TABLET PO (08:46)
[2023-04-28] MEDS: Naltrexone HCl 50 MG TABLET PO (08:46)
[2023-04-28] MEDS: Thiamine HCL 100 MG TABLET PO (08:46)
[2023-04-28] MEDS: LORazepam 1 MG TABLET 2 MG PO ×2 (08:56→12:46)
[2023-04-28] MEDS: Nicotine Polacrilex 2 MG GUM 4 MG BUCCAL ×3 (08:58→16:56)
[2023-04-28 08:59] VITALS: BP 133/91; PULSE 108; RESP 18; TEMP 35.8; O2SAT 98
[2023-04-28] MEDS: Throat Lozenge, Medicated LOZENGE 1 LOZENGE MUCOUS MEM (14:45)
--- NOTE | 2023-04-28 17:12 | P.PNPSI_ITS ---
Subjective Subjective Date of Service: 04/28/23 Reason For Visit: SI Subjective Notes: Conditional Voluntary Interim History: Patient is a very vague historian poor self-care questions schizoaffective disorder depressed unclear why not on antidepressant patient really unable to give clear history was on sertraline in the past Patient complains of foot injury Medication Compliance: Yes Mental Status Exam Mental Status Exam Patient Appearance: Disheveled Patient Orientation: Person and Place Level of Consciousness: Awake and Appropriate Patient Behavior: Cooperative and Restless Mood Description: Constricted, Depressed and Apprehensive Affect Description: Constricted, Flat and Apprehensive Ability to Follow Directions: Good Speech Pattern: Clear and Impoverished Hallucinations: None Delusions: Not Present Thought Process: Rumination Thought Content: positive for Poverty of Content Depressive Symptoms: Increased Anxiety, Diff. Making Decisions, Increased Irritability, Loss of Int. in Activity, Feelings of Worthlessness, Thoughts of /Suicide, Loss of Energy and Difficulty Concentrating Abnormal Motor Activity Signs and Symptoms: Tremors Judgement: Fair Judgement and Insight: Could not really explain behavior prior to admission he does except he has mental illness he does accept need for treatment for his alcohol dependence Diagnostics Vital Signs (24Hr): Vital Signs - 24 hr 04/27/23 17:45 04/28/23 08:59 Temperature 97.3 F 96.5 F L Pulse Rate 110 H 108 H Respiratory Rate 18 Blood Pressure 143/87 H 133/91 H Pulse Oximetry 98 Oxygen Delivery Method Room Air BMI result Body Mass Index 19.4 Labs 04/24/23 12:09 04/27/23 08:26 Labs: Laboratory Results - last 48 hr 04/27/23 04/27/23 08:26 08:26 Sodium 138 Potassium 4.3 Chloride 101 Carbon Dioxide 29 Anion Gap 12 BUN 10 Creatinine 0.65 Estim Creat Clear Calc 119.7 Estimated GFR > 60 Fasting Glucose 86 Estimat Average Glucose 111 Hemoglobin A1c % 5.5 Calcium 10.0 D Total Bilirubin 0.8 AST 26 ALT 34 Alkaline Phosphatase 78 Total Protein 7.5 Albumin 4.4 Triglycerides 48 Cholesterol 132 LDL Cholesterol, Calc 59 HDL Cholesterol 64 Vitamin B12 416 Folate 8.2 TSH 1.10 Free T4 0.98 Medications Medications Current Medications Acetaminophen (Acetaminophen 325 Mg Tablet) 650 mg PO Q6H PRN PRN Reason: Headache/Pain Mild Scale (1-3) Last Admin: 04/28/23 13:14 Dose: 650 mg Al Hydroxide/Mg Hydroxide (Magnesium Hydrox/Alum Hydrox 30 Ml Oral.Susp) 30 ml PO Q6H PRN PRN Reason: Heartburn/Nausea Benzocaine (Throat Lozenge, Medicated Lozenge) 1 lozenge MUCOUS MEM Q2H PRN PRN Reason: Sore Throat Last Admin: 04/28/23 14:45 Dose: 1 lozenge Benztropine Mesylate (Benztropine Mesylate 1 Mg Tablet) 1 mg PO BID [facility] Last Admin: 04/28/23 08:45 Dose: 1 mg Folic Acid (Folic Acid 1 Mg Tablet) 1 mg PO DAILY [facility] Last Admin: 04/28/23 08:46 Dose: 1 mg Hydroxyzine HCl (Hydroxyzine Hcl 25 Mg Tablet) 25 mg PO Q6H PRN PRN Reason: Anxiety Last Admin: 04/27/23 14:14 Dose: 25 mg Lorazepam (Lorazepam 1 Mg Tablet) 1 mg PO Q2H PRN PRN Reason: CIWA 8-11 Last Admin: 04/28/23 03:20 Dose: 1 mg Lorazepam (Lorazepam 1 Mg Tablet) 2 mg PO Q2H PRN PRN Reason: CIWA 12-15 Last Admin: 04/28/23 12:46 Dose: 2 mg Lorazepam (Lorazepam 1 Mg Tablet) 3 mg PO Q2H PRN PRN Reason: CIWA > 15; and call Magnesium Hydroxide (Milk Of Magnesia 30 Ml Oral.Susp) 30 ml PO DAILY PRN PRN Reason: Constipation Naltrexone HCl (Naltrexone Hcl 50 Mg Tablet) 50 mg PO DAILY [facility] Last Admin: 04/28/23 08:46 Dose: 50 mg Nicotine (Nicotine 21 Mg Patch.Td24) 21 mg TRANSDERMA DAILY [facility] Last Admin: 04/28/23 08:46 Dose: 21 mg Nicotine Polacrilex (Nicotine Polacrilex 2 Mg Gum) 4 mg BUCCAL Q2H PRN PRN Reason: Nicotine Cravings Last Admin: 04/28/23 16:56 Dose: 2 mg Nicotine Polacrilex (Nicotine Polacrilex Lozenge 4 Mg Lozenge) 4 mg BUCCAL Q2H PRN PRN Reason: Nicotine Cravings Last Admin: 04/28/23 01:40 Dose: 4 mg Perphenazine (Perphenazine 8 Mg Tablet) 8 mg PO BID [facility] Last Admin: 04/28/23 08:45 Dose: 8 mg Perphenazine (Perphenazine 8 Mg Tablet) 8 mg PO Q4H PRN PRN Reason: agitation Thiamine HCl (Thiamine Hcl 100 Mg Tablet) 100 mg PO DAILY [facility] Last Admin: 04/28/23 08:46 Dose: 100 mg Trazodone HCl (Trazodone Hcl 100 Mg Tablet) 100 mg PO BEDTIME PRN PRN Reason: Insomnia Allergies Allergies Allergy/AdvReac Type Severity Reaction Status Date / Time No Known Drug Allergies Allergy Unknown UNKNOWN Unverified 04/24/23 11:56 [NO KNOWN DRUG ALLERGIES] Assessment & Plan Assessment & Plan (1) Schizoaffective disorder, depressive type: Status: Acute Code(s): F25.1 - Schizoaffective disorder, depressive type (2) Alcohol use disorder, severe, dependence: Status: Acute Code(s): F10.20 - Alcohol dependence, uncomplicated Plan Patient with long history of mood instability has been on Depakote sertraline in the past currently on Invega perphenazine and Thorazine had recently been added. Re-evaluate need for mood stabilizing agents and relationship of patient's mood disorder with his significant alcohol use which is certainly a contributing factor to mood instability and depression. Patient on CIWA with lorazepam for withdrawal continue Invega perphenazine get additional history from family outpatient providers [facility] coordinate care question step-down perhaps to partial hospital type setting evaluate safety patient denies active SI no reported history of withdrawal seizures according to the patient 04/28/23 Med consult foot injury sertraline 50 am monitor response Patient educated on: diagnosis and medication risk/benefits Informed Consent: further education needed Reason for continued inpatient stay Substantial Risk for: harm to self and rapid decompensation Time Spent With Patient Time: Total time managing care of this patient today ____ minutes.
[2023-04-28 17:55] VITALS: BP 155/102; PULSE 90; RESP 16; TEMP 36.6; O2SAT 100
[2023-04-28] MEDS: hydrOXYzine HCL 25 MG TABLET PO (21:18)
[2023-04-29] MEDS: Nicotine Polacrilex Lozenge 4 MG LOZENGE BUCCAL ×5 (01:24→20:56)
[2023-04-29] MEDS: traZODone HCL 100 MG TABLET PO (02:32)
[2023-04-29] MEDS: hydrOXYzine HCL 25 MG TABLET PO ×2 (02:34→15:52)
[2023-04-29] MEDS: Naltrexone HCl 50 MG TABLET PO (08:08)
[2023-04-29] MEDS: Benztropine Mesylate 1 MG TABLET PO ×2 (08:08→20:56)
[2023-04-29] MEDS: Folic Acid 1 MG TABLET PO (08:09)
[2023-04-29] MEDS: Nicotine 21 MG PATCH.TD24 TRANSDERMA (08:09)
[2023-04-29] MEDS: Perphenazine 8 MG TABLET PO ×2 (08:09→20:56)
[2023-04-29] MEDS: Sertraline HCL 50 MG TABLET PO (08:09)
[2023-04-29] MEDS: Thiamine HCL 100 MG TABLET PO (08:09)
[2023-04-29 08:31] VITALS: BP 105/76; PULSE 111
--- NOTE | 2023-04-29 10:29 | P.PNPSI_ITS ---
Subjective Subjective Date of Service: 04/29/23 Reason For Visit: SI Interim History: met with pt; discussed with team; reviewed notes pt difficult with which to engage as he is guarded, suspicious and internally pre-occupied. Pt answering questions vaguely; denies SI saying he just wants somethings in his life to change, but won't expand. Does not know what meds he takes; says yes to they are helpful but cannot say what they are helping or why he takes them...Tells this specification writer that specification writer is causing problems... would not talk about alcoholism would not talk w/ specification writer about foot (did talk w/ PA however) Review of Systems [facility] his nurse practitioner is Babak Uribe the patient is on a complicated regimen of medication that includes a monthly injectable of Invega sustain Mental Status Exam Mental Status Exam Narrative: Pt is alert and oriented; behavior is guarded, suspicious, pacing hallway; patient is not in distress; dressed in casual attire, disheveled, poor hygiene; mood is described as depressed and affect blunted; eye contact minimal; Speech is mumbled, soft volume, slower rate; some psychomotor agitation/retardation present; thought process is goal directed; Thought content is with suspicious thoughts; denies any SI/HI. Thought blocking and internally preoccupied. Patients insight and judgment are intact. Diagnostics Vital Signs (24Hr): Vital Signs - 24 hr 04/28/23 17:55 04/29/23 08:31 Temperature 97.8 F Pulse Rate 90 111 H Respiratory Rate 16 Blood Pressure 155/102 H 105/76 Pulse Oximetry 100 Oxygen Delivery Method Room Air BMI result Body Mass Index 19.4 Labs 04/24/23 12:09 04/27/23 08:26 Medications Medications Current Medications Acetaminophen (Acetaminophen 325 Mg Tablet) 650 mg PO Q6H PRN PRN Reason: Headache/Pain Mild Scale (1-3) Last Admin: 04/28/23 13:14 Dose: 650 mg Al Hydroxide/Mg Hydroxide (Magnesium Hydrox/Alum Hydrox 30 Ml Oral.Susp) 30 ml PO Q6H PRN PRN Reason: Heartburn/Nausea Benzocaine (Throat Lozenge, Medicated Lozenge) 1 lozenge MUCOUS MEM Q2H PRN PRN Reason: Sore Throat Last Admin: 04/28/23 14:45 Dose: 1 lozenge Benztropine Mesylate (Benztropine Mesylate 1 Mg Tablet) 1 mg PO BID [facility] Last Admin: 04/29/23 08:08 Dose: 1 mg Folic Acid (Folic Acid 1 Mg Tablet) 1 mg PO DAILY [facility] Last Admin: 04/29/23 08:09 Dose: 1 mg Hydroxyzine HCl (Hydroxyzine Hcl 25 Mg Tablet) 25 mg PO Q6H PRN PRN Reason: Anxiety Last Admin: 04/29/23 02:34 Dose: 25 mg Lorazepam (Lorazepam 1 Mg Tablet) 1 mg PO Q2H PRN PRN Reason: CIWA 8-11 Last Admin: 04/28/23 21:19 Dose: 1 mg Lorazepam (Lorazepam 1 Mg Tablet) 2 mg PO Q2H PRN PRN Reason: CIWA 12-15 Last Admin: 04/28/23 12:46 Dose: 2 mg Lorazepam (Lorazepam 1 Mg Tablet) 3 mg PO Q2H PRN PRN Reason: CIWA > 15; and call Magnesium Hydroxide (Milk Of Magnesia 30 Ml Oral.Susp) 30 ml PO DAILY PRN PRN Reason: Constipation Naltrexone HCl (Naltrexone Hcl 50 Mg Tablet) 50 mg PO DAILY [facility] Last Admin: 04/29/23 08:08 Dose: 50 mg Nicotine (Nicotine 21 Mg Patch.Td24) 21 mg TRANSDERMA DAILY [facility] Last Admin: 04/29/23 08:09 Dose: 21 mg Nicotine Polacrilex (Nicotine Polacrilex 2 Mg Gum) 4 mg BUCCAL Q2H PRN PRN Reason: Nicotine Cravings Last Admin: 04/28/23 16:56 Dose: 2 mg Nicotine Polacrilex (Nicotine Polacrilex Lozenge 4 Mg Lozenge) 4 mg BUCCAL Q2H PRN PRN Reason: Nicotine Cravings Last Admin: 04/29/23 08:08 Dose: 4 mg Perphenazine (Perphenazine 8 Mg Tablet) 8 mg PO BID [facility] Last Admin: 04/29/23 08:09 Dose: 8 mg Perphenazine (Perphenazine 8 Mg Tablet) 8 mg PO Q4H PRN PRN Reason: agitation Sertraline HCl (Sertraline Hcl 50 Mg Tablet) 50 mg PO DAILY [facility] Last Admin: 04/29/23 08:09 Dose: 50 mg Thiamine HCl (Thiamine Hcl 100 Mg Tablet) 100 mg PO DAILY [facility] Last Admin: 04/29/23 08:09 Dose: 100 mg Trazodone HCl (Trazodone Hcl 100 Mg Tablet) 100 mg PO BEDTIME PRN PRN Reason: Insomnia Last Admin: 04/29/23 02:32 Dose: 100 mg Allergies Allergies Allergy/AdvReac Type Severity Reaction Status Date / Time No Known Drug Allergies Allergy Unknown UNKNOWN Unverified 04/24/23 11:56 [NO KNOWN DRUG ALLERGIES] Assessment & Plan Assessment & Plan (1) Schizoaffective disorder, depressive type: Status: Acute Code(s): F25.1 - Schizoaffective disorder, depressive type (2) Alcohol use disorder, severe, dependence: Status: Acute Code(s): F10.20 - Alcohol dependence, uncomplicated Plan pt is a 37 yo male with hx of Schizoaffective disorder, depressed type and Etoh dependence who presents with depression/SI and worsening psychotic symptoms in face of likely medication non-adherence, alcohol abuse. -Patient with long history of mood instability; significant alcohol use which is certainly a contributing factor to mood instability and depression.?? -currently prescribed Invega, perphenazine; Thorazine had recently been added; has been on Depakote sertraline in the past? -Re-evaluate need for mood stabilizing agents and relationship of patient's mood disorder Plan: CV q15 min -Restarted Perphenazine 8mg BID -Restart Cogentin 1mg BID -Need to find out about Last Invega Sustenna CIWA with prn ativan admitting provider started pt on sertraline 50 am get collateral Hospital Course: 04/29 pt guarded; psychotic symptoms present; continue tx plan; will get collateral; find out last invega dose Reviewed Med consult for foot injury; NTD Patient educated on: diagnosis, medication risk/benefits and substance abuse Informed Consent: does not understand and further education needed Reason for continued inpatient stay Substantial Risk for: inability to function Time Spent With Patient Time: Total time managing care of this patient today ____ minutes.
[2023-04-29] MEDS: Acetaminophen 325 MG TABLET 650 MG PO ×2 (11:13→20:56)
--- NOTE | 2023-04-29 13:26 | P.EN_ITS ---
Event Note Date of Service: 04/29/23 Event Note: Patient is a 37-year-old male with a PMH significant for alcohol use disorder, COPD, anxiety, depression, and schizophrenia who is seen for evaluation of right foot injury. Pt states he was walking barefoot in his driveway over a week ago and must have cut his foot on a rock or piece of glass. He does not think he noticed it right away but a few days later when he began having in the bottom of his right foot. Patient describes pain as sharp and shooting, primarily occurs when walking, is non radiating, and rates it at a 10/10. Patient denies noticing any blood or any other discharge from site. Denies numbness or tingling in leg. No fever, chills, nausea, vomiting. Upon physical examination there is a superficial 2.5 cm laceration across the center the right forefoot with pocket underneath that have drained at one time. Area underneath is tender to palpation but no noted induration or fluctuance. There is also a small slight abrasion under the 1st digit. No signs of infection or abscess. Patient has been advised he should keep his foot clean by showering daily and soaking foot in a warm bath. Acetaminophen for pain. There is no indication right now for either antibiotics or surgical drainage. Thank you for allowing us to part icipate in the care of this patient. Signing off at this time. Please let us know if pt develops systemic symptoms or current symptoms worsen.. Time Spent With Patient Time: Total time managing care of this patient today ____ minutes.
[2023-04-29 18:00] VITALS: BP 120/65; PULSE 80
[2023-04-30] MEDS: traZODone HCL 100 MG TABLET PO (00:59)
[2023-04-30] MEDS: Nicotine Polacrilex Lozenge 4 MG LOZENGE BUCCAL ×3 (02:37→19:18)
[2023-04-30] MEDS: hydrOXYzine HCL 25 MG TABLET PO (02:37)
[2023-04-30 08:54] VITALS: BP 132/92; PULSE 72; RESP 18; TEMP 36.5; O2SAT 95
[2023-04-30] MEDS: Nicotine 21 MG PATCH.TD24 TRANSDERMA (09:05)
[2023-04-30] MEDS: Benztropine Mesylate 1 MG TABLET PO ×2 (09:06→21:32)
[2023-04-30] MEDS: Thiamine HCL 100 MG TABLET PO (09:06)
[2023-04-30] MEDS: Folic Acid 1 MG TABLET PO (09:06)
[2023-04-30] MEDS: Naltrexone HCl 50 MG TABLET PO (09:06)
[2023-04-30] MEDS: Perphenazine 8 MG TABLET PO (09:06)
[2023-04-30] MEDS: Sertraline HCL 50 MG TABLET PO (09:06)
--- NOTE | 2023-04-30 10:36 | P.PNPSI_ITS ---
Subjective Subjective Date of Service: 04/30/23 Reason For Visit: SI Interim History: Met with patient; discussed with team Patient remains disorganized, internally preoccupied, guarded and suspicious. Mostly mumbling and hard understand, accusatory. Says he took Invega a few weeks ago.. from a nurse... Mental Status Exam Mental Status Exam Narrative: Pt is alert and oriented; behavior is guarded, suspicious, pacing hallway; patient is not in distress; dressed in casual attire, adequately groomed; mood is described as so-so and affect blunted; eye contact minimal; Speech is mumbled, soft volume, slower rate; some psychomotor agitation/retardation present; thought process is goal directed; Thought content is with suspicious thoughts; denies any SI/HI. Thought blocking and internally preoccupied. Patients insight and judgment impaired. Diagnostics Vital Signs (24Hr): Vital Signs - 24 hr 04/29/23 18:00 04/30/23 08:54 Temperature 97.7 F Pulse Rate 80 72 Respiratory Rate 18 Blood Pressure 120/65 132/92 H Pulse Oximetry 95 Oxygen Delivery Method Room Air BMI result Body Mass Index 19.4 Labs 04/24/23 12:09 04/27/23 08:26 Medications Medications Current Medications Acetaminophen (Acetaminophen 325 Mg Tablet) 650 mg PO Q6H PRN PRN Reason: Headache/Pain Mild Scale (1-3) Last Admin: 04/29/23 20:56 Dose: 650 mg Al Hydroxide/Mg Hydroxide (Magnesium Hydrox/Alum Hydrox 30 Ml Oral.Susp) 30 ml PO Q6H PRN PRN Reason: Heartburn/Nausea Benzocaine (Throat Lozenge, Medicated Lozenge) 1 lozenge MUCOUS MEM Q2H PRN PRN Reason: Sore Throat Last Admin: 04/28/23 14:45 Dose: 1 lozenge Benztropine Mesylate (Benztropine Mesylate 1 Mg Tablet) 1 mg PO BID [facility] Last Admin: 04/30/23 09:06 Dose: 1 mg Folic Acid (Folic Acid 1 Mg Tablet) 1 mg PO DAILY [facility] Last Admin: 04/30/23 09:06 Dose: 1 mg Hydroxyzine HCl (Hydroxyzine Hcl 25 Mg Tablet) 25 mg PO Q6H PRN PRN Reason: Anxiety Last Admin: 04/30/23 02:37 Dose: 25 mg Lorazepam (Lorazepam 1 Mg Tablet) 1 mg PO Q2H PRN PRN Reason: CIWA 8-11 Last Admin: 04/28/23 21:19 Dose: 1 mg Lorazepam (Lorazepam 1 Mg Tablet) 2 mg PO Q2H PRN PRN Reason: CIWA 12-15 Last Admin: 04/28/23 12:46 Dose: 2 mg Lorazepam (Lorazepam 1 Mg Tablet) 3 mg PO Q2H PRN PRN Reason: CIWA > 15; and call Magnesium Hydroxide (Milk Of Magnesia 30 Ml Oral.Susp) 30 ml PO DAILY PRN PRN Reason: Constipation Naltrexone HCl (Naltrexone Hcl 50 Mg Tablet) 50 mg PO DAILY [facility] Last Admin: 04/30/23 09:06 Dose: 50 mg Nicotine (Nicotine 21 Mg Patch.Td24) 21 mg TRANSDERMA DAILY [facility] Last Admin: 04/30/23 09:05 Dose: 21 mg Nicotine Polacrilex (Nicotine Polacrilex 2 Mg Gum) 4 mg BUCCAL Q2H PRN PRN Reason: Nicotine Cravings Last Admin: 04/28/23 16:56 Dose: 2 mg Nicotine Polacrilex (Nicotine Polacrilex Lozenge 4 Mg Lozenge) 4 mg BUCCAL Q2H PRN PRN Reason: Nicotine Cravings Last Admin: 04/30/23 02:37 Dose: 4 mg Perphenazine (Perphenazine 8 Mg Tablet) 8 mg PO BID [facility] Last Admin: 04/30/23 09:06 Dose: 8 mg Perphenazine (Perphenazine 8 Mg Tablet) 8 mg PO Q4H PRN PRN Reason: agitation Sertraline HCl (Sertraline Hcl 50 Mg Tablet) 50 mg PO DAILY [facility] Last Admin: 04/30/23 09:06 Dose: 50 mg Thiamine HCl (Thiamine Hcl 100 Mg Tablet) 100 mg PO DAILY [facility] Last Admin: 04/30/23 09:06 Dose: 100 mg Trazodone HCl (Trazodone Hcl 100 Mg Tablet) 100 mg PO BEDTIME PRN PRN Reason: Insomnia Last Admin: 04/30/23 00:59 Dose: 100 mg Allergies Allergies Allergy/AdvReac Type Severity Reaction Status Date / Time No Known Drug Allergies Allergy Unknown UNKNOWN Unverified 04/24/23 11:56 [NO KNOWN DRUG ALLERGIES] Assessment & Plan Assessment & Plan (1) Schizoaffective disorder, depressive type: Status: Acute Code(s): F25.1 - Schizoaffective disorder, depressive type (2) Alcohol use disorder, severe, dependence: Status: Acute Code(s): F10.20 - Alcohol dependence, uncomplicated Plan pt is a 37 yo male with hx of Schizoaffective disorder, depressed type and Etoh dependence who presents with depression/SI and worsening psychotic symptoms in face of likely medication non-adherence, alcohol abuse. -Patient with long history of mood instability; significant alcohol use which is certainly a contributing factor to mood instability and depression.?? -currently prescribed Invega, perphenazine; Thorazine had recently been added; has been on Depakote sertraline in the past? -Re-evaluate need for mood stabilizing agents and relationship of patient's mood disorder Plan: CV q15 min -Continue Perphenazine 8mg daily -INCREASED to Perphenazine 16 mg q.h.s. for continued psychosis -continue Cogentin 1mg BID -Need to find out about Last Invega Sust[facility]; says it was filled on 04/24 but have not confirmed whether it was received -did not restart Thorazine; apparently this was recently added, however patient is already on 2 antipsychotics with room to increase the dose of 1 of them which is preferable to adding a 3rd antipsychotic to regimen DC CIWA: Patient not going admitting provider started pt on sertraline 50 am get collateral Hospital Course: 04/29 pt guarded; psychotic symptoms present; continue tx plan; will get collateral; find out last invega dose Reviewed Med consult for foot injury; NTD 04/30 remains disorganized, psychotic suspicious internally preoccupied; increasing perphenazine; still need to confirm if he got his last Invega Sustenna 234 mg Patient educated on: diagnosis and medication risk/benefits Informed Consent: understands, does not understand and further education needed Reason for continued inpatient stay Substantial Risk for: inability to function Time Spent With Patient Time: Total time managing care of this patient today ____ minutes.
[2023-04-30 19:29] VITALS: BP 134/90; PULSE 106; RESP 16; TEMP 36.7; O2SAT 98
[2023-04-30] MEDS: Perphenazine 8 MG TABLET 16 MG PO (21:32)
[2023-05-01] MEDS: Nicotine Polacrilex Lozenge 4 MG LOZENGE BUCCAL ×4 (00:40→19:27)
[2023-05-01] MEDS: hydrOXYzine HCL 25 MG TABLET PO (00:40)
[2023-05-01] MEDS: Nicotine 21 MG PATCH.TD24 TRANSDERMA (08:25)
[2023-05-01] MEDS: Throat Lozenge, Medicated LOZENGE 1 LOZENGE MUCOUS MEM (08:25)
[2023-05-01] MEDS: Benztropine Mesylate 1 MG TABLET PO ×2 (08:25→22:06)
[2023-05-01] MEDS: Naltrexone HCl 50 MG TABLET PO (08:26)
[2023-05-01] MEDS: Sertraline HCL 50 MG TABLET PO (08:26)
[2023-05-01] MEDS: Perphenazine 8 MG TABLET PO (08:26)
[2023-05-01] MEDS: Thiamine HCL 100 MG TABLET PO (08:26)
[2023-05-01] MEDS: Folic Acid 1 MG TABLET PO (08:26)
[2023-05-01 08:30] VITALS: BP 121/85; PULSE 115; RESP 16; TEMP 36.7; O2SAT 96
--- NOTE | 2023-05-01 15:17 | P.PNPSI_ITS ---
Subjective Subjective Date of Service: 05/01/23 Reason For Visit: SI Interim History: Met with patient; discussed with team Patient was paranoid. Dismissive of expert medical writer when approached. He was walking in the [place]. He said I have nothing to talk to you about. Appeared internally preoccupied. Guarded and paranoid. Appeared to self dialogue as he walked away. Review of Systems Review of Systems As per HPI Yes all other systems are reviewed and are negative Constitutional: Reports as per HPI Mental Status Exam Mental Status Exam Narrative: Pt is alert and oriented; behavior is guarded, suspicious, pacing hallway; patient is not in distress; dressed in casual attire, adequately groomed; mood is described as so-so and affect blunted; eye contact minimal; Speech is mumb led, soft volume, slower rate; some psychomotor agitation/retardation present; thought process is goal directed; Thought content is with suspicious thoughts; denies any SI/HI. Thought blocking and internally preoccupied. Patients insight and judgment impaired. Patient Appearance: Disheveled Patient Orientation: Person and Place Level of Consciousness: Awake and Appropriate Patient Behavior: Cooperative and Restless Mood Description: Constricted, Depressed and Apprehensive Affect Description: Constricted, Flat and Apprehensive Ability to Follow Directions: Good Speech Pattern: Clear and Impoverished Diagnostics Vital Signs (24Hr): Vital Signs - 24 hr 04/30/23 19:29 05/01/23 08:30 Temperature 98.0 F 98.0 F Pulse Rate 106 H 115 H Respiratory Rate 16 16 Blood Pressure 134/90 H 121/85 Pulse Oximetry 98 96 Oxygen Delivery Method Room Air Room Air BMI result Body Mass Index 19.4 Labs 04/24/23 12:09 04/27/23 08:26 Medications Medications Current Medications Acetaminophen (Acetaminophen 325 Mg Tablet) 650 mg PO Q6H PRN PRN Reason: Headache/Pain Mild Scale (1-3) Last Admin: 04/29/23 20:56 Dose: 650 mg Al Hydroxide/Mg Hydroxide (Magnesium Hydrox/Alum Hydrox 30 Ml Oral.Susp) 30 ml PO Q6H PRN PRN Reason: Heartburn/Nausea Benzocaine (Throat Lozenge, Medicated Lozenge) 1 lozenge MUCOUS MEM Q2H PRN PRN Reason: Sore Throat Last Admin: 05/01/23 08:25 Dose: 1 lozenge Benztropine Mesylate (Benztropine Mesylate 1 Mg Tablet) 1 mg PO BID [facility] Last Admin: 05/01/23 08:25 Dose: 1 mg Folic Acid (Folic Acid 1 Mg Tablet) 1 mg PO DAILY [facility] Last Admin: 05/01/23 08:26 Dose: 1 mg Hydroxyzine HCl (Hydroxyzine Hcl 25 Mg Tablet) 25 mg PO Q6H PRN PRN Reason: Anxiety Last Admin: 05/01/23 00:40 Dose: 25 mg Magnesium Hydroxide (Milk Of Magnesia 30 Ml Oral.Susp) 30 ml PO DAILY PRN PRN Reason: Constipation Naltrexone HCl (Naltrexone Hcl 50 Mg Tablet) 50 mg PO DAILY [facility] Last Admin: 05/01/23 08:26 Dose: 50 mg Nicotine (Nicotine 21 Mg Patch.Td24) 21 mg TRANSDERMA DAILY [facility] Last Admin: 05/01/23 08:25 Dose: 21 mg Nicotine Polacrilex (Nicotine Polacrilex 2 Mg Gum) 4 mg BUCCAL Q2H PRN PRN Reason: Nicotine Cravings Last Admin: 04/28/23 16:56 Dose: 2 mg Nicotine Polacrilex (Nicotine Polacrilex Lozenge 4 Mg Lozenge) 4 mg BUCCAL Q2H PRN PRN Reason: Nicotine Cravings Last Admin: 05/01/23 14:18 Dose: 4 mg Perphenazine (Perphenazine 8 Mg Tablet) 8 mg PO Q4H PRN PRN Reason: agitation Perphenazine (Perphenazine 8 Mg Tablet) 8 mg PO DAILY [facility] Last Admin: 05/01/23 08:26 Dose: 8 mg Perphenazine (Perphenazine 8 Mg Tablet) 16 mg PO BEDTIME [facility] Last Admin: 04/30/23 21:32 Dose: 16 mg Sertraline HCl (Sertraline Hcl 50 Mg Tablet) 50 mg PO DAILY [facility] Last Admin: 05/01/23 08:26 Dose: 50 mg Thiamine HCl (Thiamine Hcl 100 Mg Tablet) 100 mg PO DAILY [facility] Last Admin: 05/01/23 08:26 Dose: 100 mg Trazodone HCl (Trazodone Hcl 100 Mg Tablet) 100 mg PO BEDTIME PRN PRN Reason: Insomnia Last Admin: 04/30/23 00:59 Dose: 100 mg Allergies Allergies Allergy/AdvReac Type Severity Reaction Status Date / Time No Known Drug Allergies Allergy Unknown UNKNOWN Unverified 04/24/23 11:56 [NO KNOWN DRUG ALLERGIES] Assessment & Plan Assessment & Plan (1) Schizoaffective disorder, depressive type: Status: Acute Code(s): F25.1 - Schizoaffective disorder, depressive type (2) Alcohol use disorder, severe, dependence: Status: Acute Code(s): F10.20 - Alcohol dependence, uncomplicated Plan pt is a 37 yo male with hx of Schizoaffective disorder, depressed type and Etoh dependence who presents with depression/SI and worsening psychotic symptoms in face of likely medication non-adherence, alcohol abuse. -Patient with long history of mood instability; significant alcohol use which is certainly a contributing factor to mood instability and depression.?? -currently prescribed Invega, perphenazine; Thorazine had recently been added; has been on Depakote sertraline in the past? -Re-evaluate need for mood stabilizing agents and relationship of patient's mood disorder Plan: CV q15 min -Continue Perphenazine 8mg daily -INCREASED to Perphenazine 16 mg q.h.s. for continued psychosis -continue Cogentin 1mg BID -Need to find out about Last Invega S[facility]; says it was filled on 04/24 but have not confirmed whether it was received -did not restart Thorazine; apparently this was recently added, however patient is already on 2 antipsychotics with room to increase the dose of 1 of them which is preferable to adding a 3rd antipsychotic to regimen DC CIWA: Patient not going admitting provider started pt on sertraline 50 am get collateral Hospital Course: 04/29 pt guarded; psychotic symptoms present; continue tx plan; will get collateral; find out last invega dose Reviewed Med consult for foot injury; NTD 04/30 remains disorganized, psychotic suspicious internally preoccupied; increasing perphenazine; still need to confirm if he got his last Invega Sustenna 234 mg 05/01: Collaterals re treatment history when available after the weekend. Perphenazine recently increased. Patient not reporting side effects. Reason for continued inpatient stay Substantial Risk for: rapid decompensation Time Spent With Patient Time: Total time managing care of this patient today ____ minutes.
[2023-05-01] MEDS: Perphenazine 8 MG TABLET 16 MG PO (22:06)
--- NOTE | 2023-05-01 22:12 | PC.NURSE ---
PT refused vital signs
[2023-05-02] MEDS: Nicotine Polacrilex Lozenge 4 MG LOZENGE BUCCAL ×3 (06:08→17:31)
[2023-05-02 08:18] VITALS: BP 123/92; PULSE 122; RESP 18; TEMP 36.6; O2SAT 97
[2023-05-02] MEDS: Thiamine HCL 100 MG TABLET PO (08:39)
[2023-05-02] MEDS: Naltrexone HCl 50 MG TABLET PO (08:39)
[2023-05-02] MEDS: Nicotine 21 MG PATCH.TD24 TRANSDERMA (08:40)
[2023-05-02] MEDS: Benztropine Mesylate 1 MG TABLET PO ×2 (08:40→21:26)
[2023-05-02] MEDS: Perphenazine 8 MG TABLET PO (08:40)
[2023-05-02] MEDS: Folic Acid 1 MG TABLET PO (08:40)
[2023-05-02] MEDS: Sertraline HCL 50 MG TABLET PO (08:40)
[2023-05-02] MEDS: hydrOXYzine HCL 25 MG TABLET PO (17:31)
[2023-05-02 17:45] VITALS: BP 148/85; PULSE 72; RESP 18; TEMP 36.8; O2SAT 98
--- NOTE | 2023-05-02 19:48 | P.PNPSI_ITS ---
Subjective Subjective Date of Service: 05/02/23 Reason For Visit: SI Interim History: Met with patient; discussed with team Patient was paranoid. Dismissive of keno writer / runner when approached. Not today. I don't have anything to talk about. He was in his room and then proceeded to close the door. Appeared internally preoccupied. Guarded and paranoid. Per staff, paranoid, evasive and self-dialoguing. Review of Systems Review of Systems As per HPI Yes all other systems are reviewed and are negative Constitutional: Reports as per HPI Mental Status Exam Mental Status Exam Narrative: Pt is alert and oriented; behavior is guarded, suspicious, pacing hallway; patient is not in distress; dressed in casual attire, adequately groomed; mood is described as so-so and affect blunted; eye contact minimal; Speech is mumbled, soft volume, slower rate; some psychomotor agitation/retardation present; thought process is goal directed; Thought content is with suspicious thoughts; denies any SI/HI. Thought blocking and internally preoccupied. Patients insight and judgment impaired. Patient Appearance: Disheveled Patient Orientation: Person and Place Level of Consciousness: Awake and Appropriate Patient Behavior: Cooperative and Restless Mood Description: Constricted, Depressed and Apprehensive Affect Description: Constricted, Flat and Apprehensive Ability to Follow Directions: Good Speech Pattern: Clear and Impoverished Diagnostics Vital Signs (24Hr): Vital Signs - 24 hr 05/02/23 08:18 05/02/23 17:45 Temperature 97.8 F 98.2 F Pulse Rate 122 H 72 Respiratory Rate 18 18 Blood Pressure 123/92 H 148/85 H Pulse Oximetry 97 98 Oxygen Delivery Method Room Air Room Air BMI result Body Mass Index 19.4 Labs 04/24/23 12:09 04/27/23 08:26 Medications Medications Current Medications Acetaminophen (Acetaminophen 325 Mg Tablet) 650 mg PO Q6H PRN PRN Reason: Headache/Pain Mild Scale (1-3) Last Admin: 04/29/23 20:56 Dose: 650 mg Al Hydroxide/Mg Hydroxide (Magnesium Hydrox/Alum Hydrox 30 Ml Oral.Susp) 30 ml PO Q6H PRN PRN Reason: Heartburn/Nausea Benzocaine (Throat Lozenge, Medicated Lozenge) 1 lozenge MUCOUS MEM Q2H PRN PRN Reason: Sore Throat Last Admin: 05/01/23 08:25 Dose: 1 lozenge Benztropine Mesylate (Benztropine Mesylate 1 Mg Tablet) 1 mg PO BID [facility] Last Admin: 05/02/23 08:40 Dose: 1 mg Folic Acid (Folic Acid 1 Mg Tablet) 1 mg PO DAILY [facility] Last Admin: 05/02/23 08:40 Dose: 1 mg Hydroxyzine HCl (Hydroxyzine Hcl 25 Mg Tablet) 25 mg PO Q6H PRN PRN Reason: Anxiety Last Admin: 05/02/23 17:31 Dose: 25 mg Magnesium Hydroxide (Milk Of Magnesia 30 Ml Oral.Susp) 30 ml PO DAILY PRN PRN Reason: Constipation Naltrexone HCl (Naltrexone Hcl 50 Mg Tablet) 50 mg PO DAILY [facility] Last Admin: 05/02/23 08:39 Dose: 50 mg Nicotine (Nicotine 21 Mg Patch.Td24) 21 mg TRANSDERMA DAILY [facility] Last Admin: 05/02/23 08:40 Dose: 21 mg Nicotine Polacrilex (Nicotine Polacrilex 2 Mg Gum) 4 mg BUCCAL Q2H PRN PRN Reason: Nicotine Cravings Last Admin: 04/28/23 16:56 Dose: 2 mg Nicotine Polacrilex (Nicotine Polacrilex Lozenge 4 Mg Lozenge) 4 mg BUCCAL Q2H PRN PRN Reason: Nicotine Cravings Last Admin: 05/02/23 17:31 Dose: 4 mg Perphenazine (Perphenazine 8 Mg Tablet) 8 mg PO Q4H PRN PRN Reason: agitation Perphenazine (Perphenazine 8 Mg Tablet) 8 mg PO DAILY [facility] Last Admin: 05/02/23 08:40 Dose: 8 mg Perphenazine (Perphenazine 8 Mg Tablet) 16 mg PO BEDTIME [facility] Last Admin: 05/01/23 22:06 Dose: 16 mg Sertraline HCl (Sertraline Hcl 50 Mg Tablet) 50 mg PO DAILY [facility] Last Admin: 05/02/23 08:40 Dose: 50 mg Thiamine HCl (Thiamine Hcl 100 Mg Tablet) 100 mg PO DAILY [facility] Last Admin: 05/02/23 08:39 Dose: 100 mg Trazodone HCl (Trazodone Hcl 100 Mg Tablet) 100 mg PO BEDTIME PRN PRN Reason: Insomnia Last Admin: 04/30/23 00:59 Dose: 100 mg Allergies Allergies Allergy/AdvReac Type Severity Reaction Status Date / Time No Known Drug Allergies Allergy Unknown UNKNOWN Verified 05/01/23 16:39 [NO KNOWN DRUG ALLERGIES] Assessment & Plan Assessment & Plan (1) Schizoaffective disorder, depressive type: Status: Acute Code(s): F25.1 - Schizoaffective disorder, depressive type (2) Alcohol use disorder, severe, dependence: Status: Acute Code(s): F10.20 - Alcohol dependence, uncomplicated Plan pt is a 37 yo male with hx of Schizoaffective disorder, depressed type and Etoh dependence who presents with depression/SI and worsening psychotic symptoms in face of likely medication non-adherence, alcohol abuse. -Patient with long history of mood instability; significant alcohol use which is certainly a contributing factor to mood instability and depression.?? -currently prescribed Invega, perphenazine; Thorazine had recently been added; has been on Depakote sertraline in the past? -Re-evaluate need for mood stabilizing agents and relationship of patient's mood disorder Plan: CV q15 min -Continue Perphenazine 8mg daily -INCREASED to Perphenazine 16 mg q.h.s. for continued psychosis -continue Cogentin 1mg BID -Need to find out about Last Invega [facility]; says it was filled on 04/24 but have not confirmed whether it was received -did not restart Thorazine; apparently this was recently added, however patient is already on 2 antipsychotics with room to increase the dose of 1 of them which is preferable to adding a 3rd antipsychotic to regimen DC CIWA: Patient not going admitting provider started pt on sertraline 50 am get collateral Hospital Course: 04/29 pt guarded; psychotic symptoms present; continue tx plan; will get collateral; find out last invega dose Reviewed Med consult for foot injury; NTD 04/30 remains disorganized, psychotic suspicious internally preoccupied; increasing perphenazine; still need to confirm if he got his last Invega Sustenna 234 mg 05/01: Collaterals re treatment history when available after the weekend. Perphenazine recently increased. Patient not reporting side effects. 05/02: Continue current treatment plan. Reason for continued inpatient stay Substantial Risk for: inability to function and rapid decompensation Time Spent With Patient Time: Total time managing care of this patient today ____ minutes.
[2023-05-02] MEDS: Perphenazine 8 MG TABLET 16 MG PO (21:26)
[2023-05-03] MEDS: Nicotine Polacrilex Lozenge 4 MG LOZENGE BUCCAL ×5 (05:59→23:10)
[2023-05-03] MEDS: hydrOXYzine HCL 25 MG TABLET PO ×3 (05:59→23:10)
[2023-05-03 06:00] VITALS: RESP 16
[2023-05-03] MEDS: Folic Acid 1 MG TABLET PO (08:27)
[2023-05-03] MEDS: Sertraline HCL 50 MG TABLET PO (08:27)
[2023-05-03] MEDS: Thiamine HCL 100 MG TABLET PO (08:27)
[2023-05-03] MEDS: Naltrexone HCl 50 MG TABLET PO (08:28)
[2023-05-03] MEDS: Benztropine Mesylate 1 MG TABLET PO ×2 (08:28→19:55)
[2023-05-03] MEDS: Perphenazine 8 MG TABLET PO (08:28)
--- NOTE | 2023-05-03 08:33 | P.PNPSI_ITS ---
Subjective Subjective Date of Service: 05/03/23 Reason For Visit: SI Interim History: Met with patient; discussed with team Patient a little more talkative with keno writer today. Agreed to increasing medications. Gave permission to talk with his grandmother and father. Denies any AH. He says he is doing a little better and says he was having a hard time before he got here which he says is hard to explain. Mental Status Exam Mental Status Exam Narrative: Pt is alert and oriented; behavior is little more receptive and less guarded or suspicious though remains so; pacing hallway; patient is not in distress; dressed in casual attire, malodorous; mood is described as little better and affect little more relaxed, though still blunted; eye contact adequate; Speech is a little more clearly articulated but also becomes mumbled, soft volume; normal rate; some psychomotor agitation/retardation present; thought process is goal directed; Thought content is undisclosed but with some suspicious under tone; denies any SI/HI. Thought blocking and internally preoccupied. Denies AVH Patients insight and judgment impaired. Diagnostics Vital Signs (24Hr): Vital Signs - 24 hr 05/02/23 17:45 Temperature 98.2 F Pulse Rate 72 Respiratory Rate 18 Blood Pressure 148/85 H Pulse Oximetry 98 Oxygen Delivery Method Room Air BMI result Body Mass Index 19.4 Labs 04/24/23 12:09 04/27/23 08:26 Medications Medications Current Medications Acetaminophen (Acetaminophen 325 Mg Tablet) 650 mg PO Q6H PRN PRN Reason: Headache/Pain Mild Scale (1-3) Last Admin: 04/29/23 20:56 Dose: 650 mg Al Hydroxide/Mg Hydroxide (Magnesium Hydrox/Alum Hydrox 30 Ml Oral.Susp) 30 ml PO Q6H PRN PRN Reason: Heartburn/Nausea Benzocaine (Throat Lozenge, Medicated Lozenge) 1 lozenge MUCOUS MEM Q2H PRN PRN Reason: Sore Throat Last Admin: 05/01/23 08:25 Dose: 1 lozenge Benztropine Mesylate (Benztropine Mesylate 1 Mg Tablet) 1 mg PO BID [facility] Last Admin: 05/03/23 08:28 Dose: 1 mg Folic Acid (Folic Acid 1 Mg Tablet) 1 mg PO DAILY [facility] Last Admin: 05/03/23 08:27 Dose: 1 mg Hydroxyzine HCl (Hydroxyzine Hcl 25 Mg Tablet) 25 mg PO Q6H PRN PRN Reason: Anxiety Last Admin: 05/03/23 05:59 Dose: 25 mg Magnesium Hydroxide (Milk Of Magnesia 30 Ml Oral.Susp) 30 ml PO DAILY PRN PRN Reason: Constipation Naltrexone HCl (Naltrexone Hcl 50 Mg Tablet) 50 mg PO DAILY [facility] Last Admin: 05/03/23 08:28 Dose: 50 mg Nicotine (Nicotine 21 Mg Patch.Td24) 21 mg TRANSDERMA DAILY [facility] Last Admin: 05/02/23 08:40 Dose: 21 mg Nicotine Polacrilex (Nicotine Polacrilex 2 Mg Gum) 4 mg BUCCAL Q2H PRN PRN Reason: Nicotine Cravings Last Admin: 04/28/23 16:56 Dose: 2 mg Nicotine Polacrilex (Nicotine Polacrilex Lozenge 4 Mg Lozenge) 4 mg BUCCAL Q2H PRN PRN Reason: Nicotine Cravings Last Admin: 05/03/23 05:59 Dose: 4 mg Perphenazine (Perphenazine 8 Mg Tablet) 8 mg PO Q4H PRN PRN Reason: agitation Perphenazine (Perphenazine 8 Mg Tablet) 8 mg PO DAILY [facility] Last Admin: 05/03/23 08:28 Dose: 8 mg Perphenazine (Perphenazine 8 Mg Tablet) 16 mg PO BEDTIME [facility] Last Admin: 05/02/23 21:26 Dose: 16 mg Sertraline HCl (Sertraline Hcl 50 Mg Tablet) 50 mg PO DAILY [facility] Last Admin: 05/03/23 08:27 Dose: 50 mg Thiamine HCl (Thiamine Hcl 100 Mg Tablet) 100 mg PO DAILY [facility] Last Admin: 05/03/23 08:27 Dose: 100 mg Trazodone HCl (Trazodone Hcl 100 Mg Tablet) 100 mg PO BEDTIME PRN PRN Reason: Insomnia Last Admin: 04/30/23 00:59 Dose: 100 mg Allergies Allergies Allergy/AdvReac Type Severity Reaction Status Date / Time No Known Drug Allergies Allergy Unknown UNKNOWN Verified 05/01/23 16:39 [NO KNOWN DRUG ALLERGIES] Assessment & Plan Assessment & Plan (1) Schizoaffective disorder, depressive type: Status: Acute Code(s): F25.1 - Schizoaffective disorder, depressive type (2) Alcohol use disorder, severe, dependence: Status: Acute Code(s): F10.20 - Alcohol dependence, uncomplicated Plan pt is a 37 yo male with hx of Schizoaffective disorder, depressed type and Etoh dependence who presents with depression/SI and worsening psychotic symptoms in face of likely medication non-adherence, alcohol abuse. -Patient with long history of mood instability; significant alcohol use which is certainly a contributing factor to mood instability and depression.?? -currently prescribed Invega, perphenazine; Thorazine had recently been added; has been on Depakote sertraline in the past? -Re-evaluate need for mood stabilizing agents and relationship of patient's mood disorder Plan: CV q15 min -Continue Perphenazine 8mg daily -Continue to Perphenazine 16 mg q.h.s. for continued psychosis -continue Cogentin 1mg BID -Need to find out about Last Invega Sustenna; says it was filled on 04/24 but have not confirmed whether it was received -did not restart Thorazine; apparently this was recently added, however patient is already on 2 antipsychotics with room to increase the dose of 1 of them which is preferable to adding a 3rd antipsychotic to regimen DC CIWA: Patient not going admitting provider started pt on sertraline 50 am get collateral: Patient gave verbal permission to talk with his grandmother and father Hospital Course: 04/29 pt guarded; psychotic symptoms present; continue tx plan; will get collateral; find out last invega dose Reviewed Med consult for foot injury; NTD 04/30 remains disorganized, psychotic suspicious internally preoccupied; increasing perphenazine; still need to confirm if he got his last Invega Sustenna 234 mg 05/01: Collaterals re treatment history when available after the weekend. Perphenazine recently increased. Patient not reporting side effects. 05/02: Continue current treatment plan. 05/03 patient is perhaps mildly improved; will thus continue current regimen and hold off increasing perphenazine further; still do not have confirmation of last Invega Sustenna dose Patient educated on: diagnosis and medication risk/benefits Informed Consent: further education needed Reason for continued inpatient stay Substantial Risk for: rapid decompensation Time Spent With Patient Time: Total time managing care of this patient today ____ minutes.
[2023-05-03 16:04] VITALS: BP 132/65; PULSE 89
[2023-05-03] MEDS: Perphenazine 8 MG TABLET 16 MG PO (19:54)
[2023-05-04] MEDS: Thiamine HCL 100 MG TABLET PO (08:10)
[2023-05-04] MEDS: Nicotine 21 MG PATCH.TD24 TRANSDERMA (08:10)
[2023-05-04] MEDS: Naltrexone HCl 50 MG TABLET PO (08:10)
[2023-05-04] MEDS: Perphenazine 8 MG TABLET PO (08:10)
[2023-05-04] MEDS: Benztropine Mesylate 1 MG TABLET PO ×2 (08:10→22:24)
[2023-05-04] MEDS: Folic Acid 1 MG TABLET PO (08:10)
[2023-05-04] MEDS: Sertraline HCL 50 MG TABLET PO (08:10)
[2023-05-04 08:36] VITALS: BP 123/92; PULSE 99; RESP 16; TEMP 36.8; O2SAT 98
[2023-05-04] MEDS: Nicotine Polacrilex 2 MG GUM 4 MG BUCCAL (11:54)
[2023-05-04] MEDS: hydrOXYzine HCL 25 MG TABLET PO (13:01)
[2023-05-04] MEDS: Nicotine Polacrilex Lozenge 4 MG LOZENGE BUCCAL ×3 (14:03→22:23)
--- NOTE | 2023-05-04 14:41 | P.PNPSI_ITS ---
Subjective Subjective Date of Service: 05/04/23 Reason For Visit: SI Interim History: met with patient; discussed with team pt showered (with encouragement); little more receptive to narrative writer and said he's feeling good. Broommaker asked to elaborate but he was not sure how to explain further. Mental Status Exam Mental Status Exam Narrative: Pt is alert and oriented; behavior is little more receptive and less guarded; patient is not in distress; dressed in casual attire, with good hygiene (showered today); mood is described as good and affect little more relaxed, though still blunted; eye contact adequate; Speech is a little more clearly articulated but also becomes mumbled, soft volume; normal rate; some psychomotor agitation/retardation present; thought process is goal directed; Thought content is undisclosed but with some suspicious under tone; denies any SI/HI. Thought blocking and internally preoccupied. Denies AVH Patients insight and judgment impaired but seems to be improving. Diagnostics Vital Signs (24Hr): Vital Signs - 24 hr 05/03/23 16:04 05/04/23 08:36 Temperature 98.2 F Pulse Rate 89 99 Respiratory Rate 16 Blood Pressure 132/65 123/92 H Pulse Oximetry 98 Oxygen Delivery Method Room Air BMI result Body Mass Index 19.4 Labs 04/24/23 12:09 04/27/23 08:26 Medications Medications Current Medications Acetaminophen (Acetaminophen 325 Mg Tablet) 650 mg PO Q6H PRN PRN Reason: Headache/Pain Mild Scale (1-3) Last Admin: 04/29/23 20:56 Dose: 650 mg Al Hydroxide/Mg Hydroxide (Magnesium Hydrox/Alum Hydrox 30 Ml Oral.Susp) 30 ml PO Q6H PRN PRN Reason: Heartburn/Nausea Benzocaine (Throat Lozenge, Medicated Lozenge) 1 lozenge MUCOUS MEM Q2H PRN PRN Reason: Sore Throat Last Admin: 05/01/23 08:25 Dose: 1 lozenge Benztropine Mesylate (Benztropine Mesylate 1 Mg Tablet) 1 mg PO BID [facility] Last Admin: 05/04/23 08:10 Dose: 1 mg Folic Acid (Folic Acid 1 Mg Tablet) 1 mg PO DAILY [facility] Last Admin: 05/04/23 08:10 Dose: 1 mg Hydroxyzine HCl (Hydroxyzine Hcl 25 Mg Tablet) 25 mg PO Q6H PRN PRN Reason: Anxiety Last Admin: 05/04/23 13:01 Dose: 25 mg Magnesium Hydroxide (Milk Of Magnesia 30 Ml Oral.Susp) 30 ml PO DAILY PRN PRN Reason: Constipation Naltrexone HCl (Naltrexone Hcl 50 Mg Tablet) 50 mg PO DAILY [facility] Last Admin: 05/04/23 08:10 Dose: 50 mg Nicotine (Nicotine 21 Mg Patch.Td24) 21 mg TRANSDERMA DAILY [facility] Last Admin: 05/04/23 08:10 Dose: 21 mg Nicotine Polacrilex (Nicotine Polacrilex 2 Mg Gum) 4 mg BUCCAL Q2H PRN PRN Reason: Nicotine Cravings Last Admin: 05/04/23 11:54 Dose: 4 mg Nicotine Polacrilex (Nicotine Polacrilex Lozenge 4 Mg Lozenge) 4 mg BUCCAL Q2H PRN PRN Reason: Nicotine Cravings Last Admin: 05/04/23 14:03 Dose: 4 mg Perphenazine (Perphenazine 8 Mg Tablet) 8 mg PO Q4H PRN PRN Reason: agitation Perphenazine (Perphenazine 8 Mg Tablet) 8 mg PO DAILY [facility] Last Admin: 05/04/23 08:10 Dose: 8 mg Perphenazine (Perphenazine 8 Mg Tablet) 16 mg PO BEDTIME [facility] Last Admin: 05/03/23 19:54 Dose: 16 mg Sertraline HCl (Sertraline Hcl 50 Mg Tablet) 50 mg PO DAILY [facility] Last Admin: 05/04/23 08:10 Dose: 50 mg Thiamine HCl (Thiamine Hcl 100 Mg Tablet) 100 mg PO DAILY [facility] Last Admin: 05/04/23 08:10 Dose: 100 mg Trazodone HCl (Trazodone Hcl 100 Mg Tablet) 100 mg PO BEDTIME PRN PRN Reason: Insomnia Last Admin: 04/30/23 00:59 Dose: 100 mg Allergies Allergies Allergy/AdvReac Type Severity Reaction Status Date / Time No Known Drug Allergies Allergy Unknown UNKNOWN Verified 05/01/23 16:39 [NO KNOWN DRUG ALLERGIES] Assessment & Plan Assessment & Plan (1) Schizoaffective disorder, depressive type: Status: Acute Code(s): F25.1 - Schizoaffective disorder, depressive type (2) Alcohol use disorder, severe, dependence: Status: Acute Code(s): F10.20 - Alcohol dependence, uncomplicated Plan pt is a 37 yo male with hx of Schizoaffective disorder, depressed type and Etoh dependence who presents with depression/SI and worsening psychotic symptoms in face of likely medication non-adherence, alcohol abuse. -Patient with long history of mood instability; significant alcohol use which is certainly a contributing factor to mood instability and depression.?? -currently prescribed Invega, perphenazine; Thorazine had recently been added; has been on Depakote sertraline in the past? -Re-evaluate need for mood stabilizing agents and relationship of patient's mood disorder Plan: CV q15 min -Continue Perphenazine 8mg daily -Continue to Perphenazine 16 mg q.h.s. for continued psychosis -continue Cogentin 1mg BID -Need to find out about Last Invega Sustenna; says it was filled on 04/24 but have not confirmed whether it was received -did not restart Thorazine; apparently this was recently added, however patient is already on 2 antipsychotics with room to increase the dose of 1 of them which is preferable to adding a 3rd antipsychotic to regimen DC CIWA: Patient not going admitting provider started pt on sertraline 50 am get collateral: Patient gave verbal permission to talk with his grandmother and father Hospital Course: 04/29 pt guarded; psychotic symptoms present; continue tx plan; will get collateral; find out last invega dose Reviewed Med consult for foot injury; NTD 04/30 remains disorganized, psychotic suspicious internally preoccupied; increasing perphenazine; still need to confirm if he got his last Invega Sustenna 234 mg 05/01: Collaterals re treatment history when available after the weekend. Perphenazine recently increased. Patient not reporting side effects. 05/02: Continue current treatment plan. 05/03 patient is perhaps mildly improved; will thus continue current regimen and hold off increasing perphenazine further; still do not have confirmation of last Invega Sustenna dose 05/04 continue current tx plan Patient educated on: diagnosis Informed Consent: understands Reason for continued inpatient stay Substantial Risk for: rapid decompensation Time Spent With Patient Time: Total time managing care of this patient today ____ minutes.
[2023-05-04 18:00] VITALS: BP 162/99; PULSE 76; TEMP 36.7; O2SAT 99
[2023-05-04] MEDS: Perphenazine 8 MG TABLET 16 MG PO (22:24)
[2023-05-04] MEDS: traZODone HCL 100 MG TABLET PO (22:24)
[2023-05-05] MEDS: hydrOXYzine HCL 25 MG TABLET PO ×2 (03:31→11:53)
[2023-05-05] MEDS: Nicotine Polacrilex Lozenge 4 MG LOZENGE BUCCAL ×6 (03:31→23:10)
[2023-05-05] MEDS: Perphenazine 8 MG TABLET PO (08:38)
[2023-05-05] MEDS: Thiamine HCL 100 MG TABLET PO (08:38)
[2023-05-05] MEDS: Benztropine Mesylate 1 MG TABLET PO ×2 (08:38→23:11)
[2023-05-05] MEDS: Naltrexone HCl 50 MG TABLET PO (08:38)
[2023-05-05] MEDS: Sertraline HCL 50 MG TABLET PO (08:38)
[2023-05-05] MEDS: Folic Acid 1 MG TABLET PO (08:38)
[2023-05-05] MEDS: Nicotine 21 MG PATCH.TD24 TRANSDERMA (08:38)
[2023-05-05 08:47] VITALS: BP 114/69; PULSE 107; RESP 18; TEMP 36.1; O2SAT 98
[2023-05-05] MEDS: Paliperidone Palmitate 234 MG/1.5 ML SYRINGE IM (14:37)
--- NOTE | 2023-05-05 17:11 | HO.PSYCHPN ---
Subjective Subjective Date of Service: 05/05/23 Reason For Visit: SI Interim History: Met with patient; discussed with team; discussed case with patient's VNA; discussed case with patient's father visited Patient more guarded today, mumbling and internally preoccupied. Agrees to get Invega Sustenna. Discussed case with Jocy patient's VNA who reports he missed his dose of Invega Sustenna 234 mg which he gets monthly, which was post to be given on the day he was admitted to the unit. She reports that baseline patient is not mumbling and though withdrawn talks clearly; also at baseline he does not express any overt paranoid delusional thoughts; that said though she strongly suspects that at baseline he does harbor paranoid delusions. Jocy reports that patient often has to be convinced to get his Invega shot and sometimes this will take a few days. She thinks that he starts to decompensate a few days before the shot is due anyway and agrees that having the shot Q 25 days would very likely improve his overall symptoms. Discussed case with father who agrees with treatment plan; agrees the patient has social anxiety but not sure if Zoloft will be helpful. Nursing Professor will discuss further with patient. Says naltrexone seems to help a little bit. Mental Status Exam Mental Status Exam Narrative: Pt is alert and oriented; behavior is little more receptive, but remains guarded; patient is not in distress; dressed in hospital attire, with adequate hygiene; mood is described as ok and affect back to constricted; eye contact adequate; Speech is a little more clearly articulated but also becomes mumbled, soft volume; normal rate; some psychomotor agitation/retardation present; thought process is goal directed; Thought content is undisclosed but with some suspicious under tone; denies any SI/HI. Thought blocking and internally preoccupied. Denies AVH Patients insight and judgment impaired but seems to be improving. Diagnostics Vital Signs (24Hr): Vital Signs - 24 hr 05/04/23 18:00 05/05/23 08:47 Temperature 98.1 F 96.9 F Pulse Rate 76 107 H Respiratory Rate 18 Blood Pressure 162/99 H 114/69 Pulse Oximetry 99 98 Oxygen Delivery Method Room Air Room Air BMI result Body Mass Index 19.4 Labs 04/24/23 12:09 04/27/23 08:26 Medications Medications Current Medications Acetaminophen (Acetaminophen 325 Mg Tablet) 650 mg PO Q6H PRN PRN Reason: Headache/Pain Mild Scale (1-3) Last Admin: 04/29/23 20:56 Dose: 650 mg Al Hydroxide/Mg Hydroxide (Magnesium Hydrox/Alum Hydrox 30 Ml Oral.Susp) 30 ml PO Q6H PRN PRN Reason: Heartburn/Nausea Benzocaine (Throat Lozenge, Medicated Lozenge) 1 lozenge MUCOUS MEM Q2H PRN PRN Reason: Sore Throat Last Admin: 05/01/23 08:25 Dose: 1 lozenge Benztropine Mesylate (Benztropine Mesylate 1 Mg Tablet) 1 mg PO BID [facility] Last Admin: 05/05/23 08:38 Dose: 1 mg Folic Acid (Folic Acid 1 Mg Tablet) 1 mg PO DAILY [facility] Last Admin: 05/05/23 08:38 Dose: 1 mg Hydroxyzine HCl (Hydroxyzine Hcl 25 Mg Tablet) 25 mg PO Q6H PRN PRN Reason: Anxiety Last Admin: 05/05/23 11:53 Dose: 25 mg Magnesium Hydroxide (Milk Of Magnesia 30 Ml Oral.Susp) 30 ml PO DAILY PRN PRN Reason: Constipation Naltrexone HCl (Naltrexone Hcl 50 Mg Tablet) 50 mg PO DAILY [facility] Last Admin: 05/05/23 08:38 Dose: 50 mg Nicotine (Nicotine 21 Mg Patch.Td24) 21 mg TRANSDERMA DAILY [facility] Last Admin: 05/05/23 08:38 Dose: 21 mg Nicotine Polacrilex (Nicotine Polacrilex 2 Mg Gum) 4 mg BUCCAL Q2H PRN PRN Reason: Nicotine Cravings Last Admin: 05/04/23 11:54 Dose: 4 mg Nicotine Polacrilex (Nicotine Polacrilex Lozenge 4 Mg Lozenge) 4 mg BUCCAL Q2H PRN PRN Reason: Nicotine Cravings Last Admin: 05/05/23 14:41 Dose: 4 mg Perphenazine (Perphenazine 8 Mg Tablet) 8 mg PO Q4H PRN PRN Reason: agitation Perphenazine (Perphenazine 8 Mg Tablet) 8 mg PO DAILY [facility] Last Admin: 05/05/23 08:38 Dose: 8 mg Perphenazine (Perphenazine 8 Mg Tablet) 16 mg PO BEDTIME [facility] Last Admin: 05/04/23 22:24 Dose: 16 mg Sertraline HCl (Sertraline Hcl 50 Mg Tablet) 50 mg PO DAILY [facility] Last Admin: 05/05/23 08:38 Dose: 50 mg Thiamine HCl (Thiamine Hcl 100 Mg Tablet) 100 mg PO DAILY [facility] Last Admin: 05/05/23 08:38 Dose: 100 mg Trazodone HCl (Trazodone Hcl 100 Mg Tablet) 100 mg PO BEDTIME PRN PRN Reason: Insomnia Last Admin: 05/04/23 22:24 Dose: 100 mg Allergies Allergies Allergy/AdvReac Type Severity Reaction Status Date / Time No Known Drug Allergies Allergy Unknown UNKNOWN Verified 05/01/23 16:39 [NO KNOWN DRUG ALLERGIES] Assessment & Plan Assessment & Plan (1) Schizoaffective disorder, depressive type: Status: Acute Code(s): F25.1 - Schizoaffective disorder, depressive type (2) Alcohol use disorder, severe, dependence: Status: Acute Code(s): F10.20 - Alcohol dependence, uncomplicated Plan pt is a 37 yo male with hx of Schizoaffective disorder, depressed type and Etoh dependence who presents with depression/SI and worsening psychotic symptoms in face of likely medication non-adherence, alcohol abuse. -Patient with long history of mood instability; significant alcohol use which is certainly a contributing factor to mood instability and depression.?? -currently prescribed Invega, perphenazine; Thorazine had recently been added; has been on Depakote sertraline in the past? -Re-evaluate need for mood stabilizing agents and relationship of patient's mood disorder Plan: CV q15 min -Invega Sustenna 234 mg IM received on 05/06 -Continue Perphenazine 8mg daily -Continue to Perphenazine 16 mg q.h.s. for continued psychosis -continue Cogentin 1mg BID -Need to find out about Last Invega Sustenna; says it was filled on 04/24 but have not confirmed whether it was received -did not restart Thorazine; apparently this was recently added, however patient is already on 2 antipsychotics with room to increase the dose of 1 of them which is preferable to adding a 3rd antipsychotic to regimen DC CIWA: Patient not going admitting provider started pt on sertraline 50 am get collateral: Patient gave verbal permission to talk with his grandmother and father Hospital Course: 04/29 pt guarded; psychotic symptoms present; continue tx plan; will get collateral; find out last invega dose Reviewed Med consult for foot injury; NTD 04/30 remains disorganized, psychotic suspicious internally preoccupied; increasing perphenazine; still need to confirm if he got his last Invega Sustenna 234 mg 05/01: Collaterals re treatment history when available after the weekend. Perphenazine recently increased. Patient not reporting side effects. 05/02: Continue current treatment plan. 05/03 patient is perhaps mildly improved; will thus continue current regimen and hold off increasing perphenazine further; still do not have confirmation of last Invega Sustenna dose 05/04 continue current tx plan 05/05 will give Invega Sustenna 234 mg IM since he missed his last dose; will likely change it to Q 25 days Patient educated on: diagnosis and medication risk/benefits Informed Consent: understands, does not understand and further education needed Reason for continued inpatient stay Substantial Risk for: rapid decompensation Time Spent With Patient Time: Total time managing care of this patient today ____ minutes.
[2023-05-05] MEDS: Perphenazine 8 MG TABLET 16 MG PO (23:10)
[2023-05-06] MEDS: Nicotine Polacrilex Lozenge 4 MG LOZENGE BUCCAL ×4 (01:51→15:46)
[2023-05-06] MEDS: hydrOXYzine HCL 25 MG TABLET PO ×3 (01:51→15:45)
[2023-05-06 07:00] VITALS: BMI 20.1
[2023-05-06] MEDS: Nicotine 21 MG PATCH.TD24 TRANSDERMA (08:07)
[2023-05-06] MEDS: Folic Acid 1 MG TABLET PO (08:07)
[2023-05-06] MEDS: Perphenazine 8 MG TABLET PO (08:07)
[2023-05-06] MEDS: Thiamine HCL 100 MG TABLET PO (08:07)
[2023-05-06] MEDS: Naltrexone HCl 50 MG TABLET PO (08:07)
[2023-05-06] MEDS: Sertraline HCL 50 MG TABLET PO (08:07)
[2023-05-06] MEDS: Benztropine Mesylate 1 MG TABLET PO ×2 (08:07→21:53)
[2023-05-06 08:20] VITALS: BP 114/68; PULSE 86; RESP 16; TEMP 36.4; O2SAT 97
--- NOTE | 2023-05-06 09:56 | P.PNPSI_ITS ---
Subjective Subjective Date of Service: 05/06/23 Reason For Visit: SI Interim History: Briefly met with patient; discussed with team Patient sleeping well. Said he had a good visit with his father; denies any side effects from getting Invega shot other than sore arm. Patient says he is o breonna. Otherwise mostly keeping to himself Mental Status Exam Mental Status Exam Narrative: Pt is alert and oriented; behavior is little more receptive, but remains guarded; patient is not in distress; dressed in casual attire, with marginal hygiene; mood is described as ok and affect back to constricted; eye contact adequate; Speech is a little more clearly articulated but also becomes mumbled, soft volume; normal rate; some psychomotor agitation/retardation present; thought process is goal directed; Thought content is undisclosed but with some suspicious under tone; denies any SI/HI. Thought blocking and internally preoccupied. Denies AVH Patients insight and judgment impaired but seems to be improving. Diagnostics Vital Signs (24Hr): Vital Signs - 24 hr 05/06/23 08:20 Temperature 97.6 F Pulse Rate 86 Respiratory Rate 16 Blood Pressure 114/68 Pulse Oximetry 97 Oxygen Delivery Method Room Air BMI result Body Mass Index 20.1 Labs 04/24/23 12:09 04/27/23 08:26 Medications Medications Current Medications Acetaminophen (Acetaminophen 325 Mg Tablet) 650 mg PO Q6H PRN PRN Reason: Headache/Pain Mild Scale (1-3) Last Admin: 04/29/23 20:56 Dose: 650 mg Al Hydroxide/Mg Hydroxide (Magnesium Hydrox/Alum Hydrox 30 Ml Oral.Susp) 30 ml PO Q6H PRN PRN Reason: Heartburn/Nausea Benzocaine (Throat Lozenge, Medicated Lozenge) 1 lozenge MUCOUS MEM Q2H PRN PRN Reason: Sore Throat Last Admin: 05/01/23 08:25 Dose: 1 lozenge Benztropine Mesylate (Benztropine Mesylate 1 Mg Tablet) 1 mg PO BID [facility] Last Admin: 05/06/23 08:07 Dose: 1 mg Folic Acid (Folic Acid 1 Mg Tablet) 1 mg PO DAILY [facility] Last Admin: 05/06/23 08:07 Dose: 1 mg Hydroxyzine HCl (Hydroxyzine Hcl 25 Mg Tablet) 25 mg PO Q6H PRN PRN Reason: Anxiety Last Admin: 05/06/23 09:14 Dose: 25 mg Magnesium Hydroxide (Milk Of Magnesia 30 Ml Oral.Susp) 30 ml PO DAILY PRN PRN Reason: Constipation Naltrexone HCl (Naltrexone Hcl 50 Mg Tablet) 50 mg PO DAILY [facility] Last Admin: 05/06/23 08:07 Dose: 50 mg Nicotine (Nicotine 21 Mg Patch.Td24) 21 mg TRANSDERMA DAILY [facility] Last Admin: 05/06/23 08:07 Dose: 21 mg Nicotine Polacrilex (Nicotine Polacrilex 2 Mg Gum) 4 mg BUCCAL Q2H PRN PRN Reason: Nicotine Cravings Last Admin: 05/04/23 11:54 Dose: 4 mg Nicotine Polacrilex (Nicotine Polacrilex Lozenge 4 Mg Lozenge) 4 mg BUCCAL Q2H PRN PRN Reason: Nicotine Cravings Last Admin: 05/06/23 09:14 Dose: 4 mg Perphenazine (Perphenazine 8 Mg Tablet) 8 mg PO Q4H PRN PRN Reason: agitation Perphenazine (Perphenazine 8 Mg Tablet) 8 mg PO DAILY [facility] Last Admin: 05/06/23 08:07 Dose: 8 mg Perphenazine (Perphenazine 8 Mg Tablet) 16 mg PO BEDTIME [facility] Last Admin: 05/05/23 23:10 Dose: 16 mg Sertraline HCl (Sertraline Hcl 50 Mg Tablet) 50 mg PO DAILY [facility] Last Admin: 05/06/23 08:07 Dose: 50 mg Thiamine HCl (Thiamine Hcl 100 Mg Tablet) 100 mg PO DAILY [facility] Last Admin: 05/06/23 08:07 Dose: 100 mg Trazodone HCl (Trazodone Hcl 100 Mg Tablet) 100 mg PO BEDTIME PRN PRN Reason: Insomnia Last Admin: 05/04/23 22:24 Dose: 100 mg Allergies Allergies Allergy/AdvReac Type Severity Reaction Status Date / Time No Known Drug Allergies Allergy Unknown UNKNOWN Verified 05/01/23 16:39 [NO KNOWN DRUG ALLERGIES] Assessment & Plan Assessment & Plan (1) Schizoaffective disorder, depressive type: Status: Acute Code(s): F25.1 - Schizoaffective disorder, depressive type (2) Alcohol use disorder, severe, dependence: Status: Acute Code(s): F10.20 - Alcohol dependence, uncomplicated Plan pt is a 37 yo male with hx of Schizoaffective disorder, depressed type and Etoh dependence who presents with depression/SI and worsening psychotic symptoms in face of likely medication non-adherence, alcohol abuse. -Patient with long history of mood instability; significant alcohol use which is certainly a contributing factor to mood instability and depression.?? -currently prescribed Invega, perphenazine; Thorazine had recently been added; has been on Depakote sertraline in the past? -Re-evaluate need for mood stabilizing agents and relationship of patient's mood disorder Plan: CV q15 min -Invega Sustenna 234 mg IM received on 05/06 -Continue Perphenazine 8mg daily -Continue to Perphenazine 16 mg q.h.s. for continued psychosis -continue Cogentin 1mg BID -Need to find out about Last Invega Sustenna; says it was filled on 04/24 but have not confirmed whether it was received -did not restart Thorazine; apparently this was recently added, however patient is already on 2 antipsychotics with room to increase the dose of 1 of them which is preferable to adding a 3rd antipsychotic to regimen DC CIWA: Patient not going admitting provider started pt on sertraline 50 am get collateral: Patient gave verbal permission to talk with his grandmother and father Hospital Course: 04/29 pt guarded; psychotic symptoms present; continue tx plan; will get collateral; find out last invega dose Reviewed Med consult for foot injury; NTD 04/30 remains disorganized, psychotic suspicious internally preoccupied; increasing perphenazine; still need to confirm if he got his last Invega Sustenna 234 mg 05/01: Collaterals re treatment history when available after the weekend. Perphen azine recently increased. Patient not reporting side effects. 05/02: Continue current treatment plan. 05/03 patient is perhaps mildly improved; will thus continue current regimen and hold off increasing perphenazine further; still do not have confirmation of last Invega Sustenna dose 05/04 continue current tx plan 05/05 will give Invega Sustenna 234 mg IM since he missed his last dose; will likely change it to Q 25 days 05/06 continue current treatment plan; will give increased perphenazine and res tarted Invega Sustenna more time to work before considering increasing any other medications. Patient educated on: diagnosis and medication risk/benefits Informed Consent: understands, does not understand and further education needed Reason for continued inpatient stay Substantial Risk for: rapid decompensation Time Spent With Patient Time: Total time managing care of this patient today ____ minutes.
[2023-05-06 18:00] VITALS: BP 123/83; PULSE 94; TEMP 37
[2023-05-06] MEDS: Perphenazine 8 MG TABLET 16 MG PO (21:53)
--- NOTE | 2023-05-07 | ECG_ITS ---
Test Reason : QTC Blood Pressure : / mmHG Vent. Rate : 075 BPM Atrial Rate : 075 BPM P-R Int : 120 ms QRS Dur : 146 ms QT Int : 396 ms P-R-T Axes : 041 091 058 degrees QTc Int : 442 ms Normal sinus rhythm Right bundle branch block Abnormal ECG When compared with ECG of 26-APR-2023 12:31, No significant change was found Referred By: Jean Michaels Electronically Signed By:JANETTE LAGOS MD
[2023-05-07] MEDS: Nicotine Polacrilex Lozenge 4 MG LOZENGE BUCCAL ×4 (02:16→19:07)
[2023-05-07 06:00] VITALS: RESP 16
[2023-05-07] MEDS: Naltrexone HCl 50 MG TABLET PO (09:14)
[2023-05-07] MEDS: Perphenazine 8 MG TABLET PO (09:14)
[2023-05-07] MEDS: Sertraline HCL 50 MG TABLET PO (09:14)
[2023-05-07] MEDS: Thiamine HCL 100 MG TABLET PO (09:14)
[2023-05-07] MEDS: Folic Acid 1 MG TABLET PO (09:14)
[2023-05-07] MEDS: Benztropine Mesylate 1 MG TABLET PO (09:14)
[2023-05-07] MEDS: Nicotine 21 MG PATCH.TD24 TRANSDERMA (10:43)
[2023-05-07] MEDS: hydrOXYzine HCL 25 MG TABLET PO ×2 (10:43→19:07)
[2023-05-07 16:17] VITALS: BP 145/98; PULSE 85; TEMP 37
--- NOTE | 2023-05-07 18:34 | HO.PSYCHPN ---
Subjective Subjective Date of Service: 05/07/23 Reason For Visit: SI Interim History: Met with patient; discussed with team Patient a little more engageable today. 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 Patient said that he is feeling overall little better. He agrees that he struggles with social anxiety and like the idea that Zoloft was started and that it could be increased. Also agrees that naltrexone does help curb alcohol cravings a little bit. Patient said he thinks he might be ready to go home early next week Mental Status Exam Mental Status Exam Narrative: Pt is alert and oriented; behavior is little more receptive, more friendly; still somewhat guarded; patient is not in distress; dressed in casual attire, with adequate hygiene; mood is described as better and affect little more natural; eye contact adequate; Speech is more clearly articulated; can also becomes mumbled, improved volume; normal rate; no psychomotor agitation/retardation present; thought process is goal directed; Thought content is undisclosed but with some suspicious under tone; denies any SI/HI. Thought blocking and internally preoccupied. Denies AVH Patients insight and judgment impaired but seems to be improving. Diagnostics Vital Signs (24Hr): Vital Signs - 24 hr 05/07/23 06:00 05/07/23 16:17 Temperature 98.6 F Pulse Rate 85 Respiratory Rate 16 Blood Pressure 145/98 H BMI result Body Mass Index 20.1 Labs 04/24/23 12:09 04/27/23 08:26 Medications Medications Current Medications Acetaminophen (Acetaminophen 325 Mg Tablet) 650 mg PO Q6H PRN PRN Reason: Headache/Pain Mild Scale (1-3) Last Admin: 04/29/23 20:56 Dose: 650 mg Al Hydroxide/Mg Hydroxide (Magnesium Hydrox/Alum Hydrox 30 Ml Oral.Susp) 30 ml PO Q6H PRN PRN Reason: Heartburn/Nausea Benzocaine (Throat Lozenge, Medicated Lozenge) 1 lozenge MUCOUS MEM Q2H PRN PRN Reason: Sore Throat Last Admin: 05/01/23 08:25 Dose: 1 lozenge Benztropine Mesylate (Benztropine Mesylate 1 Mg Tablet) 1 mg PO BID [facility] Last Admin: 05/07/23 09:14 Dose: 1 mg Folic Acid (Folic Acid 1 Mg Tablet) 1 mg PO DAILY [facility] Last Admin: 05/07/23 09:14 Dose: 1 mg Hydroxyzine HCl (Hydroxyzine Hcl 25 Mg Tablet) 25 mg PO Q6H PRN PRN Reason: Anxiety Last Admin: 05/07/23 10:43 Dose: 25 mg Magnesium Hydroxide (Milk Of Magnesia 30 Ml Oral.Susp) 30 ml PO DAILY PRN PRN Reason: Constipation Naltrexone HCl (Naltrexone Hcl 50 Mg Tablet) 50 mg PO DAILY [facility] Last Admin: 05/07/23 09:14 Dose: 50 mg Nicotine (Nicotine 21 Mg Patch.Td24) 21 mg TRANSDERMA DAILY [facility] Last Admin: 05/07/23 10:43 Dose: 21 mg Nicotine Polacrilex (Nicotine Polacrilex 2 Mg Gum) 4 mg BUCCAL Q2H PRN PRN Reason: Nicotine Cravings Last Admin: 05/04/23 11:54 Dose: 4 mg Nicotine Polacrilex (Nicotine Polacrilex Lozenge 4 Mg Lozenge) 4 mg BUCCAL Q2H PRN PRN Reason: Nicotine Cravings Last Admin: 05/07/23 14:34 Dose: 4 mg Paliperidone Palmitate (Paliperidone Palmitate 234 Mg/1.5 Ml Syringe) 234 mg IM Q25D [facility] Perphenazine (Perphenazine 8 Mg Tablet) 8 mg PO Q4H PRN PRN Reason: agitation Perphenazine (Perphenazine 8 Mg Tablet) 8 mg PO DAILY [facility] Last Admin: 05/07/23 09:14 Dose: 8 mg Perphenazine (Perphenazine 8 Mg Tablet) 16 mg PO BEDTIME [facility] Last Admin: 05/06/23 21:53 Dose: 16 mg Sertraline HCl (Sertraline Hcl 25 Mg Tablet) 75 mg PO DAILY [facility] Thiamine HCl (Thiamine Hcl 100 Mg Tablet) 100 mg PO DAILY [facility] Last Admin: 05/07/23 09:14 Dose: 100 mg Trazodone HCl (Trazodone Hcl 100 Mg Tablet) 100 mg PO BEDTIME PRN PRN Reason: Insomnia Last Admin: 05/04/23 22:24 Dose: 100 mg Allergies Allergies Allergy/AdvReac Type Severity Reaction Status Date / Time No Known Drug Allergies Allergy Unknown UNKNOWN Verified 05/01/23 16:39 [NO KNOWN DRUG ALLERGIES] Assessment & Plan Assessment & Plan (1) Schizoaffective disorder, depressive type: Status: Acute Code(s): F25.1 - Schizoaffective disorder, depressive type (2) Alcohol use disorder, severe, dependence: Status: Acute Code(s): F10.20 - Alcohol dependence, uncomplicated Plan pt is a 37 yo male with hx of Schizoaffective disorder, depressed type and Etoh dependence who presents with depression/SI and worsening psychotic symptoms in face of likely medication non-adherence, alcohol abuse. -Patient with long history of mood instability; significant alcohol use which is certainly a contributing factor to mood instability and depression.?? -currently prescribed Invega, perphenazine; Thorazine had recently been added; has been on Depakote sertraline in the past? -Re-evaluate need for mood stabilizing agents and relationship of patient's mood disorder Plan: CV q15 min INCREASE Zoloft to 75 mg for anxiety -Invega Sustenna 234 mg IM received on 05/06 -Continue Perphenazine 8mg daily -Continue to Perphenazine 16 mg q.h.s. for continued psychosis -continue Cogentin 1mg BID -Need to find out about Last Invega Sustenna; says it was filled on 04/24 but have not confirmed whether it was received -did not restart Thorazine; apparently this was recently added, however patient is already on 2 antipsychotics with room to increase the dose of 1 of them which is preferable to adding a 3rd antipsychotic to regimen DC CIWA: Patient not going admitting provider started pt on sertraline 50 am get collateral: Patient gave verbal permission to talk with his grandmother and father Hospital Course: 04/29 pt guarded; psychotic symptoms present; continue tx plan; will get collateral; find out last invega dose Reviewed Med consult for foot injury; NTD 04/30 remains disorganized, psychotic suspicious internally preoccupied; increasing perphenazine; still need to confirm if he got his last Invega Sustenna 234 mg 05/01: Collaterals re treatment history when available after the weekend. Perphenazine recently increased. Patient not reporting side effects. 05/02: Continue current treatment plan. 05/03 patient is perhaps mildly improved; will thus continue current regimen and hold off increasing perphenazine further; still do not have confirmation of last Invega Sustenna dose 05/04 continue current tx plan 05/05 will give Invega Sustenna 234 mg IM since he missed his last dose; will likely change it to Q 25 days 05/06 continue current treatment plan; will give increased perphenazine and restarted Invega Sustenna more time to work before considering increasing any other medications. 05/07 agrees to increase Zoloft for anxiety Patient educated on: diagnosis and medication risk/benefits Informed Consent: understands and further education needed Reason for continued inpatient stay Substantial Risk for: med/psych decompensation Time Spent With Patient Time: Total time managing care of this patient today ____ minutes.
[2023-05-08] MEDS: Folic Acid 1 MG TABLET PO (08:44)
[2023-05-08] MEDS: Naltrexone HCl 50 MG TABLET PO (08:44)
[2023-05-08] MEDS: Sertraline HCL 25 MG TABLET 75 MG PO (08:45)
[2023-05-08] MEDS: Nicotine 21 MG PATCH.TD24 TRANSDERMA (08:45)
[2023-05-08] MEDS: Perphenazine 8 MG TABLET PO (08:45)
[2023-05-08] MEDS: Benztropine Mesylate 1 MG TABLET PO ×2 (08:45→20:59)
[2023-05-08] MEDS: Thiamine HCL 100 MG TABLET PO (08:45)
[2023-05-08 09:03] VITALS: BP 122/83; PULSE 97; RESP 16; TEMP 36; O2SAT 98
--- NOTE | 2023-05-08 09:55 | P.PNPSI_ITS ---
Subjective Subjective Date of Service: 05/08/23 Reason For Visit: SI Interim History: met with patient; discussed with team Patient reports that he thinks he is pretty much back to his regular self. Remains guarded and difficult with which to engage but overall less so. Denies any side effects from increase in Zoloft. Mental Status Exam Mental Status Exam Narrative: Pt is alert and oriented; behavior is little more receptive, more friendly; still somewhat guarded; patient is not in distress; dressed in casual attire, with adequate hygiene; mood is described as okay and affect little more natural; eye contact adequate; Speech is more clearly articulated; can also becomes mumbled, improved volume; normal rate; no psychomotor agitation/retardation present; thought process is goal directed; Thought content is undisclosed but with some suspicious under tone; denies any SI/HI. Thought blocking and internally preoccupied. Denies AVH Patients insight and judgment impaired but seems to be improving and may be approaching baseline. Diagnostics Vital Signs (24Hr): Vital Signs - 24 hr 05/07/23 16:17 05/08/23 09:03 Temperature 98.6 F 96.8 F Pulse Rate 85 97 Respiratory Rate 16 Blood Pressure 145/98 H 122/83 Pulse Oximetry 98 Oxygen Delivery Method Room Air BMI result Body Mass Index 20.1 Labs 04/24/23 12:09 04/27/23 08:26 Medications Medications Current Medications Acetaminophen (Acetaminophen 325 Mg Tablet) 650 mg PO Q6H PRN PRN Reason: Headache/Pain Mild Scale (1-3) Last Admin: 04/29/23 20:56 Dose: 650 mg Al Hydroxide/Mg Hydroxide (Magnesium Hydrox/Alum Hydrox 30 Ml Oral.Susp) 30 ml PO Q6H PRN PRN Reason: Heartburn/Nausea Benzocaine (Throat Lozenge, Medicated Lozenge) 1 lozenge MUCOUS MEM Q2H PRN PRN Reason: Sore Throat Last Admin: 05/01/23 08:25 Dose: 1 lozenge Benztropine Mesylate (Benztropine Mesylate 1 Mg Tablet) 1 mg PO BID [facility] Last Admin: 05/08/23 08:45 Dose: 1 mg Folic Acid (Folic Acid 1 Mg Tablet) 1 mg PO DAILY [facility] Last Admin: 05/08/23 08:44 Dose: 1 mg Hydroxyzine HCl (Hydroxyzine Hcl 25 Mg Tablet) 25 mg PO Q6H PRN PRN Reason: Anxiety Last Admin: 05/07/23 19:07 Dose: 25 mg Magnesium Hydroxide (Milk Of Magnesia 30 Ml Oral.Susp) 30 ml PO DAILY PRN PRN Reason: Constipation Naltrexone HCl (Naltrexone Hcl 50 Mg Tablet) 50 mg PO DAILY [facility] Last Admin: 05/08/23 08:44 Dose: 50 mg Nicotine (Nicotine 21 Mg Patch.Td24) 21 mg TRANSDERMA DAILY [facility] Last Admin: 05/08/23 08:45 Dose: 21 mg Nicotine Polacrilex (Nicotine Polacrilex 2 Mg Gum) 4 mg BUCCAL Q2H PRN PRN Reason: Nicotine Cravings Last Admin: 05/04/23 11:54 Dose: 4 mg Nicotine Polacrilex (Nicotine Polacrilex Lozenge 4 Mg Lozenge) 4 mg BUCCAL Q2H PRN PRN Reason: Nicotine Cravings Last Admin: 05/07/23 19:07 Dose: 4 mg Paliperidone Palmitate (Paliperidone Palmitate 234 Mg/1.5 Ml Syringe) 234 mg IM Q25D [facility] Perphenazine (Perphenazine 8 Mg Tablet) 8 mg PO Q4H PRN PRN Reason: agitation Perphenazine (Perphenazine 8 Mg Tablet) 8 mg PO DAILY [facility] Last Admin: 05/08/23 08:45 Dose: 8 mg Perphenazine (Perphenazine 8 Mg Tablet) 16 mg PO BEDTIME [facility] Last Admin: 05/07/23 22:22 Dose: Not Given Sertraline HCl (Sertraline Hcl 25 Mg Tablet) 75 mg PO DAILY [facility] Last Admin: 05/08/23 08:45 Dose: 75 mg Thiamine HCl (Thiamine Hcl 100 Mg Tablet) 100 mg PO DAILY [facility] Last Admin: 05/08/23 08:45 Dose: 100 mg Trazodone HCl (Trazodone Hcl 100 Mg Tablet) 100 mg PO BEDTIME PRN PRN Reason: Insomnia Last Admin: 05/04/23 22:24 Dose: 100 mg Allergies Allergies Allergy/AdvReac Type Severity Reaction Status Date / Time No Known Drug Allergies Allergy Unknown UNKNOWN Verified 05/01/23 16:39 [NO KNOWN DRUG ALLERGIES] Assessment & Plan Assessment & Plan (1) Schizoaffective disorder, depressive type: Status: Acute Code(s): F25.1 - Schizoaffective disorder, depressive type (2) Alcohol use disorder, severe, dependence: Status: Acute Code(s): F10.20 - Alcohol dependence, uncomplicated Plan pt is a 37 yo male with hx of Schizoaffective disorder, depressed type and Etoh dependence who presents with depression/SI and worsening psychotic symptoms in face of likely medication non-adherence, alcohol abuse. -Patient with long history of mood instability; significant alcohol use which is certainly a contributing factor to mood instability and depression.?? -currently prescribed Invega, perphenazine; Thorazine had recently been added; has been on Depakote sertraline in the past? -Re-evaluate need for mood stabilizing agents and relationship of patient's mood disorder Plan: CV q15 min Continue Zoloft to 75 mg for anxiety -Invega Sustenna 234 mg IM received on 05/06 -Continue Perphenazine 8mg daily -Continue to Perphenazine 16 mg q.h.s. for continued psychosis -continue Cogentin 1mg BID -Need to find out about Last Invega Sustenna; says it was filled on 04/24 but have not confirmed whether it was received -did not restart Thorazine; apparently this was recently added, however patient is already on 2 antipsychotics with room to increase the dose of 1 of them which is preferable to adding a 3rd antipsychotic to regimen DC CIWA: Patient not going admitting provider started pt on sertraline 50 am get collateral: Patient gave verbal permission to talk with his grandmother and father Hospital Course: 04/29 pt guarded; psychotic symptoms present; continue tx plan; will get co llateral; find out last invega dose Reviewed Med consult for foot injury; NTD 04/30 remains disorganized, psychotic suspicious internally preoccupied; increasing perphenazine; still need to confirm if he got his last Invega Sustenna 234 mg 05/01: Collaterals re treatment history when available after the weekend. Perphenazine recently increased. Patient not reporting side effects. 05/02: Continue current treatment plan. 05/03 patient is perhaps mildly improved; will thus continue current regimen and hold off increasing perphenazine further; still do not have confirmation of last Invega Sustenna dose 05/04 continue current tx plan 05/05 will give Invega Sustenna 234 mg IM since he missed his last dose; will likely change it to Q 25 days 05/06 continue current treatment plan; will give increased perphenazine and restarted Invega Sustenna more time to work before considering increasing any other medications. 05/07 agrees to increase Zoloft for anxiety 05/08 continue current treatment plan Patient educated on: diagnosis Informed Consent: understands and further education needed Reason for continued inpatient stay Substantial Risk for: med/psych decompensation Time Spent With Patient Time: Total time managing care of this patient today ____ minutes.
[2023-05-08] MEDS: hydrOXYzine HCL 25 MG TABLET PO ×2 (12:28→20:59)
[2023-05-08] MEDS: Nicotine Polacrilex Lozenge 4 MG LOZENGE BUCCAL ×2 (12:28→17:04)
[2023-05-08 20:55] VITALS: BP 121/73; PULSE 68; TEMP 36.6; O2SAT 98
[2023-05-08] MEDS: Perphenazine 8 MG TABLET 16 MG PO (20:59)
[2023-05-09] MEDS: Thiamine HCL 100 MG TABLET PO (08:29)
[2023-05-09] MEDS: Naltrexone HCl 50 MG TABLET PO (08:29)
[2023-05-09] MEDS: Perphenazine 8 MG TABLET PO (08:29)
[2023-05-09] MEDS: Sertraline HCL 25 MG TABLET 75 MG PO (08:29)
[2023-05-09] MEDS: Folic Acid 1 MG TABLET PO (08:29)
[2023-05-09] MEDS: Benztropine Mesylate 1 MG TABLET PO (08:29)
[2023-05-09 08:32] VITALS: BP 114/78; PULSE 88; RESP 16; TEMP 36.5; O2SAT 100
[2023-05-09] MEDS: Nicotine 21 MG PATCH.TD24 TRANSDERMA (08:52)
--- NOTE | 2023-05-09 12:06 | P.PNPSI_ITS ---
Subjective Subjective Date of Service: 05/09/23 Reason For Visit: SI Interim History: Met with patient; discussed with team Patient continues to feel that he has mostly back to his regular self. Discussed his drinking habits and he says that he often drinks alcohol to reduce anxiety so we can talk a little bit easier. To that and he agrees to increase Zoloft to 100 mg to see if it can be helpful. Otherwise sleeping well and feeling ready for discharge soon Mental Status Exam Mental Status Exam Narrative: Pt is alert and oriented; behavior is more receptive, more friendly, calm; ; patient is not in distress; dressed in casual attire, with adequate hygiene; mood is described as good and affect little more natural; eye contact adequate; Speech is more clearly articulated; much less often does it become mumbled; normal volume; normal rate; no psychomotor agitation/retardation present; thought process is goal directed; Thought content is mostly private; denies any SI/HI. Little to no No Thought blocking; still intermittently appears internally preoccupied. Denies [facility] Patients insight and judgment impaired but seems to be improving and likely at baseline. Diagnostics Vital Signs (24Hr): Vital Signs - 24 hr 05/08/23 20:55 05/09/23 08:32 Temperature 97.8 F 97.7 F Pulse Rate 68 88 Respiratory Rate 16 Blood Pressure 121/73 114/78 Pulse Oximetry 98 100 Oxygen Delivery Method Room Air Room Air BMI result Body Mass Index 20.1 Labs 04/24/23 12:09 04/27/23 08:26 Medications Medications Current Medications Acetaminophen (Acetaminophen 325 Mg Tablet) 650 mg PO Q6H PRN PRN Reason: Headache/Pain Mild Scale (1-3) Last Admin: 04/29/23 20:56 Dose: 650 mg Al Hydroxide/Mg Hydroxide (Magnesium Hydrox/Alum Hydrox 30 Ml Oral.Susp) 30 ml PO Q6H PRN PRN Reason: Heartburn/Nausea Benzocaine (Throat Lozenge, Medicated Lozenge) 1 lozenge MUCOUS MEM Q2H PRN PRN Reason: Sore Throat Last Admin: 05/01/23 08:25 Dose: 1 lozenge Benztropine Mesylate (Benztropine Mesylate 1 Mg Tablet) 1 mg PO BID [facility] Last Admin: 05/09/23 08:29 Dose: 1 mg Folic Acid (Folic Acid 1 Mg Tablet) 1 mg PO DAILY [facility] Last Admin: 05/09/23 08:29 Dose: 1 mg Hydroxyzine HCl (Hydroxyzine Hcl 25 Mg Tablet) 25 mg PO Q6H PRN PRN Reason: Anxiety Last Admin: 05/08/23 20:59 Dose: 25 mg Magnesium Hydroxide (Milk Of Magnesia 30 Ml Oral.Susp) 30 ml PO DAILY PRN PRN Reason: Constipation Naltrexone HCl (Naltrexone Hcl 50 Mg Tablet) 50 mg PO DAILY [facility] Last Admin: 05/09/23 08:29 Dose: 50 mg Nicotine (Nicotine 21 Mg Patch.Td24) 21 mg TRANSDERMA DAILY [facility] Last Admin: 05/09/23 08:52 Dose: 21 mg Nicotine Polacrilex (Nicotine Polacrilex 2 Mg Gum) 4 mg BUCCAL Q2H PRN PRN Reason: Nicotine Cravings Last Admin: 05/04/23 11:54 Dose: 4 mg Nicotine Polacrilex (Nicotine Polacrilex Lozenge 4 Mg Lozenge) 4 mg BUCCAL Q2H PRN PRN Reason: Nicotine Cravings Last Admin: 05/08/23 17:04 Dose: 4 mg Paliperidone Palmitate (Paliperidone Palmitate 234 Mg/1.5 Ml Syringe) 234 mg IM Q25D [facility] Perphenazine (Perphenazine 8 Mg Tablet) 8 mg PO Q4H PRN PRN Reason: agitation Perphenazine (Perphenazine 8 Mg Tablet) 8 mg PO DAILY [facility] Last Admin: 05/09/23 08:29 Dose: 8 mg Perphenazine (Perphenazine 8 Mg Tablet) 16 mg PO BEDTIME [facility] Last Admin: 05/08/23 20:59 Dose: 16 mg Sertraline HCl (Sertraline Hcl 25 Mg Tablet) 75 mg PO DAILY [facility] Last Admin: 05/09/23 08:29 Dose: 75 mg Thiamine HCl (Thiamine Hcl 100 Mg Tablet) 100 mg PO DAILY [facility] Last Admin: 05/09/23 08:29 Dose: 100 mg Trazodone HCl (Trazodone Hcl 100 Mg Tablet) 100 mg PO BEDTIME PRN PRN Reason: Insomnia Last Admin: 05/04/23 22:24 Dose: 100 mg Allergies Allergies Allergy/AdvReac Type Severity Reaction Status Date / Time No Known Drug Allergies Allergy Unknown UNKNOWN Verified 05/01/23 16:39 [NO KNOWN DRUG ALLERGIES] Assessment & Plan Assessment & Plan (1) Schizoaffective disorder, depressive type: Status: Acute Code(s): F25.1 - Schizoaffective disorder, depressive type (2) Alcohol use disorder, severe, dependence: Status: Acute Code(s): F10.20 - Alcohol dependence, uncomplicated Plan pt is a 37 yo male with hx of Schizoaffective disorder, depressed type and Etoh dependence who presents with depression/SI and worsening psychotic symptoms in face of likely medication non-adherence, alcohol abuse. -Patient with long history of mood instability; significant alcohol use which is certainly a contributing factor to mood instability and depression.?? -currently prescribed Invega, perphenazine; Thorazine had recently been added; has been on Depakote sertraline in the past? -Re-evaluate need for mood stabilizing agents and relationship of patient's mood disorder Plan: CV q15 min Continue Zoloft to 75 mg for anxiety -Invega Sustenna 234 mg IM received on 05/06 -Continue Perphenazine 8mg daily -Continue to Perphenazine 16 mg q.h.s. for continued psychosis -continue Cogentin 1mg BID -Need to find out about Last Invega Sustenna; says it was filled on 04/24 but have not confirmed whether it was received -did not restart Thorazine; apparently this was recently added, however patient is already on 2 antipsychotics with room to increase the dose of 1 of them which is preferable to adding a 3rd antipsychotic to regimen DC CIWA: Patient not going admitting provider started pt on sertraline 50 am get collateral: Patient gave verbal permission to talk with his grandmother and father Hospital Course: 04/29 pt guarded; psychotic symptoms present; continue tx plan; will get collateral; find out last invega dose Reviewed Med consult for foot injury; NTD 04/30 remains disorganized, psychotic suspicious internally preoccupied; increasing perphenazine; still need to confirm if he got his last Invega Sustenna 234 mg 05/01: Collaterals re treatment history when available after the weekend. Perphenazine recently increased. Patient not reporting side effects. 05/02: Continue current treatment plan. 05/03 patient is perhaps mildly improved; will thus continue current regimen and hold off increasing perphenazine further; still do not have confirmation of last Invega Sustenna dose 05/04 continue current tx plan 05/05 will give Invega Sustenna 234 mg IM since he missed his last dose; will likely change it to Q 25 days 05/06 continue current treatment plan; will give increased perphenazine and restarted Invega Sustenna more time to work before considering increasing any other medications. 05/07 agrees to increase Zoloft for anxiety 05/08 continue current treatment plan 05/09 patient remains stable and seems to either be at or close to baseline; agrees to increase Zoloft for anxiety Patient educated on: diagnosis, medication risk/benefits and substance abuse Informed Consent: understands Reason for continued inpatient stay Substantial Risk for: stable for discharge Time Spent With Patient Time: Total time managing care of this patient today ____ minutes.
[2023-05-09] MEDS: Nicotine Polacrilex Lozenge 4 MG LOZENGE BUCCAL ×2 (13:17→19:33)
[2023-05-09] MEDS: hydrOXYzine HCL 25 MG TABLET PO (13:17)
[2023-05-09 19:30] VITALS: BP 122/84; PULSE 88; TEMP 35.8; O2SAT 98
[2023-05-10] MEDS: Benztropine Mesylate 1 MG TABLET PO ×2 (00:03→09:01)
[2023-05-10] MEDS: Perphenazine 8 MG TABLET 16 MG PO (00:03)
[2023-05-10 08:15] VITALS: BP 124/70; PULSE 100; RESP 18; TEMP 36.3; O2SAT 99
[2023-05-10] MEDS: Sertraline HCL 100 MG TABLET PO (09:01)
[2023-05-10] MEDS: Thiamine HCL 100 MG TABLET PO (09:01)
[2023-05-10] MEDS: Folic Acid 1 MG TABLET PO (09:01)
[2023-05-10] MEDS: Perphenazine 8 MG TABLET PO (09:01)
[2023-05-10] MEDS: Nicotine 21 MG PATCH.TD24 TRANSDERMA (09:02)
[2023-05-10] MEDS: Naltrexone HCl 50 MG TABLET PO (09:02)
--- NOTE | 2023-05-10 09:41 | P.PNPSI_ITS ---
Subjective Subjective Date of Service: 05/10/23 Reason For Visit: SI Interim History: Met with patient; discussed with team Diagnostics Vital Signs (24Hr): Vital Signs - 24 hr 05/09/23 19:30 Temperature 96.4 F L Pulse Rate 88 Blood Pressure 122/84 Pulse Oximetry 98 Oxygen Delivery Method Room Air BMI result Body Mass Index 20.1 Labs 04/24/23 12:09 04/27/23 08:26 Medications Medications Current Medications Acetaminophen (Acetaminophen 325 Mg Tablet) 650 mg PO Q6H PRN PRN Reason: Headache/Pain Mild Scale (1-3) Last Admin: 04/29/23 20:56 Dose: 650 mg Al Hydroxide/Mg Hydroxide (Magnesium Hydrox/Alum Hydrox 30 Ml Oral.Susp) 30 ml PO Q6H PRN PRN Reason: Heartburn/Nausea Benzocaine (Throat Lozenge, Medicated Lozenge) 1 lozenge MUCOUS MEM Q2H PRN PRN Reason: Sore Throat Last Admin: 05/01/23 08:25 Dose: 1 lozenge Benztropine Mesylate (Benztropine Mesylate 1 Mg Tablet) 1 mg PO BID [facility] Last Admin: 05/10/23 09:01 Dose: 1 mg Folic Acid (Folic Acid 1 Mg Tablet) 1 mg PO DAILY [facility] Last Admin: 05/10/23 09:01 Dose: 1 mg Hydroxyzine HCl (Hydroxyzine Hcl 25 Mg Tablet) 25 mg PO Q6H PRN PRN Reason: Anxiety Last Admin: 05/09/23 13:17 Dose: 25 mg Magnesium Hydroxide (Milk Of Magnesia 30 Ml Oral.Susp) 30 ml PO DAILY PRN PRN Reason: Constipation Naltrexone HCl (Naltrexone Hcl 50 Mg Tablet) 50 mg PO DAILY [facility] Last Admin: 05/10/23 09:02 Dose: 50 mg Nicotine (Nicotine 21 Mg Patch.Td24) 21 mg TRANSDERMA DAILY [facility] Last Admin: 05/10/23 09:02 Dose: 21 mg Nicotine Polacrilex (Nicotine Polacrilex 2 Mg Gum) 4 mg BUCCAL Q2H PRN PRN Reason: Nicotine Cravings Last Admin: 05/04/23 11:54 Dose: 4 mg Nicotine Polacrilex (Nicotine Polacrilex Lozenge 4 Mg Lozenge) 4 mg BUCCAL Q2H PRN PRN Reason: Nicotine Cravings Last Admin: 05/09/23 19:33 Dose: 4 mg Paliperidone Palmitate (Paliperidone Palmitate 234 Mg/1.5 Ml Syringe) 234 mg IM Q25D [facility] Perphenazine (Perphenazine 8 Mg Tablet) 8 mg PO Q4H PRN PRN Reason: agitation Perphenazine (Perphenazine 8 Mg Tablet) 8 mg PO DAILY [facility] Last Admin: 05/10/23 09:01 Dose: 8 mg Perphenazine (Perphenazine 8 Mg Tablet) 16 mg PO BEDTIME [facility] Last Admin: 05/10/23 00:03 Dose: 16 mg Sertraline HCl (Sertraline Hcl 100 Mg Tablet) 100 mg PO DAILY [facility] Last Admin: 05/10/23 09:01 Dose: 100 mg Thiamine HCl (Thiamine Hcl 100 Mg Tablet) 100 mg PO DAILY [facility] Last Admin: 05/10/23 09:01 Dose: 100 mg Trazodone HCl (Trazodone Hcl 100 Mg Tablet) 100 mg PO BEDTIME PRN PRN Reason: Insomnia Last Admin: 05/04/23 22:24 Dose: 100 mg Allergies Allergies Allergy/AdvReac Type Severity Reaction Status Date / Time No Known Drug Allergies Allergy Unknown UNKNOWN Verified 05/01/23 16:39 [NO KNOWN DRUG ALLERGIES] Assessment & Plan Assessment & Plan (1) Schizoaffective disorder, depressive type: Status: Acute Code(s): F25.1 - Schizoaffective disorder, depressive type (2) Alcohol use disorder, severe, dependence: Status: Acute Code(s): F10.20 - Alcohol dependence, uncomplicated Plan pt is a 37 yo male with hx of Schizoaffective disorder, depressed type and Etoh dependence who presents with depression/SI and worsening psychotic symptoms in face of likely medication non-adherence, alcohol abuse. -Patient with long history of mood instability; significant alcohol use which is certainly a contributing factor to mood instability and depression.?? -currently prescribed Invega, perphenazine; Thorazine had recently been added; has been on Depakote sertraline in the past? -Re-evaluate need for mood stabilizing agents and relationship of patient's mood disorder Plan: CV q15 min Continue Zoloft to 75 mg for anxiety -Invega Sustenna 234 mg IM received on 05/06 -Continue Perphenazine 8mg daily -Continue to Perphenazine 16 mg q.h.s. for continued psychosis -continue Cogentin 1mg BID -Need to find out about Last Invega Sustenna; says it was filled on 04/24 but have not confirmed whether it was received -did not restart Thorazine; apparently this was recently added, however patient is already on 2 antipsychotics with room to increase the dose of 1 of them which is preferable to adding a 3rd antipsychotic to regimen DC CIWA: Patient not going admitting provider started pt on sertraline 50 am get collateral: Patient gave verbal permission to talk with his grandmother and father Hospital Course: 04/29 pt guarded; psychotic symptoms present; continue tx plan; will get collateral; find out last invega dose Reviewed Med consult for foot injury; NTD 04/30 remains disorganized, psychotic suspicious internally preoccupied; increasing perphenazine; still need to confirm if he got his last Invega Sustenna 234 mg 05/01: Collaterals re treatment history when available after the weekend. Perphenazine recently increased. Patient not reporting side effects. 05/02: Continue current treatment plan. 05/03 patient is perhaps mildly improved; will thus continue current regimen and hold off increasing perphenazine further; still do not have confirmation of last Invega Sustenna dose 05/04 continue current tx plan 05/05 will give Invega Sustenna 234 mg IM since he missed his last dose; will likely change it to Q 25 days 05/06 continue current treatment plan; will give increased perphenazine and restarted Invega Sustenna more time to work before considering increasing any o ther medications. 05/07 agrees to increase Zoloft for anxiety 05/08 continue current treatment plan 05/09 patient remains stable and seems to either be at or close to baseline; agrees to increase Zoloft for anxiety Time Spent With Patient Time: Total time managing care of this patient today ____ minutes.
--- NOTE | 2023-05-10 11:14 | P.DS_ITS ---
DS: Providers Provider Date of Service: 05/10/23 Date of admission: 04/26/23 17:37 Date of discharge: 05/10/23 Primary care physician: None Physician Attending physician on admission: Jean Michaels Consults: 04/28/23 22:23 Consult to Hospitalist Routine Comment: Consulting Provider: Hospitalist Reason For Exam: l foot injury ? abcess ? antibiotics Attending physician on discharge: Jean Michaels DS: Diagnosis Discharge Diagnosis (1) Schizoaffective disorder, depressive type: Status: Acute (2) Alcohol use disorder, severe, dependence: Status: Acute DS: Medications Discharge Medications Home Medications: Previous Rx's Medication Instructions Recorded benztropine 1 mg tablet 1 mg PO BID 30 days #60 tabs 05/10/23 hydroxyzine HCl 25 mg tablet 25 mg PO Q6H PRN Anxiety 30 days 05/10/23 #90 tabs naltrexone 50 mg tablet 50 mg PO DAILY 30 days #30 tabs 05/10/23 nicotine (polacrilex) 4 mg buccal 4 mg buccal Q2H PRN Nicotine 05/10/23 lozenge Cravings 30 days #108 ea nicotine 21 mg/24 hr daily 21 mg transdermal DAILY PRN 05/10/23 transdermal patch nicotine cravings 28 days #28 ea paliperidone palmitate 234 mg/1.5 234 mg (1.5 mL) IM Q25D 25 days 05/10/23 mL intramuscular syringe (Invega #1.5 mL Sustenna) perphenazine 8 mg tablet See Rx Instructions .Route 05/10/23 .COMPLEX 30 days #90 tabs sertraline 100 mg tablet 100 mg PO DAILY 30 days #30 tabs 05/10/23 trazodone 100 mg tablet 100 mg PO BEDTIME PRN Insomnia 30 05/10/23 days #30 tabs Mental Status Exam Mental Status Exam Narrative: Pt is alert and oriented; behavior is polite, calm, more receptive, more friendly; patient is not in distress; dressed in casual attire, with adequate hygiene; mood is described as good and affect congruent, more natural; eye contact adequate; Speech is clearly articulated; normal volume, rate, prosody; no psychomotor agitation/retardation present; thought process is goal directed; Thought content on discharge; he remains private, but no delusional thinking expressed; denies any SI/HI. No Thought blocking; still intermittently appears internally preoccupied. Denies [facility] Patients insight and judgment likely somewhat impaired but overall adequate and at baseline. DS: Summary Hospital Course Hospital Course: pt is a 37 yo male with hx of Schizoaffective disorder, depressed type and Etoh dependence who presents with depression/SI and worsening psychotic symptoms in face of likely medication non-adherence, alcohol abuse. -Patient with long history of mood instability; significant alcohol use which is certainly a contributing factor to mood instability and depression.?? -patient missed most recent Invega Sustenna dose; he is otherwise on perphenazine; Thorazine had recently been added Hospital course: On admission patient was psychotic, disorganized speech and behavior, paranoid and suspicious, difficulty with which to engage, internally preoccupied and muttering to himself. Home medications were continued but given continued psychotic symptoms perphenazine bedtime dose was increased to 16 mg at bedtime, up from 8 mg b.i.d. Eventually it was discovered that patient had missed his most recent Invega Sustenna shot; [facility] reported that patient seems to decline several days before he receives the Invega Sustenna shot, gets paranoid and sometimes the administration gets further delayed. She agreed that if the shot was given more frequently, perhaps Q 25 days this would help resolve that issue. Patient received Invega Sustenna 234 mg. Patient's soon started to improve and eventually returned to baseline at which, per his father and [facility]NA, he is polite, superficially conversive, articulating clearly, without overt psychosis, but still reserved, a little bit guarded and likely with some delusional thinking even though none expressed. Patient had also been started on Zoloft for anxiet y; he welcome this medication saying that he does struggle with social anxiety which is some of the reason he drinks alcohol. Patient felt like he had returned to his baseline and was ready to go home; his father concurred. Patient was sleeping and eating well, attending to ADLs, and though mostly keeping to himself, was polite, cooperative and demonstrating good behavioral and impulse control. Patient continues to have VNA services and is returning home to a safe, supportive environment where he lives with his father. Patient was not in imminent risk for harm to self or others; he was appropriate to continue treatment in the community and his request for discharge honored. Time spent discussing smoking cessation with patient: 3 to 10 minutes Status at Discharge Functional status at discharge: independent ambulation Overall status at discharge: patient is back to baseline Time Spent with Patient Time attestation: Total time managing care of this patient today ____ minutes. Time spent: Less than 30 minutes Discharge Plan Discharge Anticipated Discharge Date/Time: 05/10/23 11:45 Patient Disposition: Home, Self-Care Discharge Diagnosis: Schizoaffective, depressed type, recurrent, severe Referrals: [facility] Covarrubias [Other] - 1 Week (In-office) [facility] [Other] - 1 Week (If you have any issues or concerns please follow up at the [facility]. They have walk in appointments and also appointments. ) Discharge Medications: New nicotine 21 mg/24 hr Patch 24 Hour 21 mg transdermal DAILY PRN (Reason: nicotine cravings) 28 Days Qty: 28 1RF Rx Instructions: remove at betime nicotine (polacrilex) 4 mg Lozenge 4 mg buccal Q2H PRN (Reason: Nicotine Cravings) 30 Days Qty: 108 1RF benztropine 1 mg Tablet 1 mg PO BID 30 Days Qty: 60 1RF naltrexone 50 mg Tablet 50 mg PO DAILY 30 Days Qty: 30 1RF hydroxyzine HCl 25 mg Tablet 25 mg PO Q6H PRN (Reason: Anxiety) 30 Days Qty: 90 1RF Invega Sustenna 234 mg/1.5 mL Syringe 234 mg IM Q25D 25 Days Qty: 1.5 1RF Rx Instructions: last dose received on 05/05/23; next due 05/31/23 sertraline 100 mg Tablet 100 mg PO DAILY 30 Days Qty: 30 1RF Continued trazodone 100 mg Tablet 100 mg PO BEDTIME PRN (Reason: Insomnia) 30 Days Qty: 30 1RF Changed perphenazine 8 mg Tablet See Rx Instructions .ROUTE .COMPLEX 30 Days Qty: 90 1RF Rx Instructions: take one tab in the morning and take 2 tabs at bedtime Discontinued Invega Sustenna 235 mg IM QMONTH Patient Comments: [facility] P/U 04/24/23 Last dose about a month ago benztropine 1 mg PO BID Rx Instructions: [facility] last P/U 04/24/23 naltrexone 50 mg PO DAILY Rx Instructions: Last picked up 04/20/23 Pt reports not taking chlorpromazine 50 mg Tablet 50 mg PO TID Rx Instructions: last P/U 03/03/23 Pt doesn't think he take this anymore Discharge Orders: Discharge Order (Routine); Ordered 05/10/23 Ordered By: Jean Michaels Diet: Regular diet Activity on Discharge: As tolerated Stand Alone Forms: Patient Portal Discharge page, Community Support Care Plan Goals: Maintain mood and safe behaviors Take medications as prescribed Continue to pursue sobriety Practice coping skills Continue with outpatient providers and reach out to them as needed Health Concerns: Mood stability and behaviors Sobriety Plan of Treatment: Follow up with your PCP, psychiatric provider and other outpatient providers regarding above concerns Take medications as prescribed Assessment: Risk assessment at time of discharge:? Patient was interviewed prior to discharge and found to be fully oriented and without any SI or HI. Patient has insight and demonstrates good judgment in terms of wanting to pursue treatment. Patient is not in imminent risk of harm to self or others and has a safety plan that includes presenting to the closest ER or calling 911 if feeling unsafe.? Patient has been observed closely by nursing and unit staff throughout admission; patient has not engaged in any behaviors that suggest dangerousness to self or others and has demonstrated appropriate behaviors and impulse control
== END 2023-05-10 11:40 | disposition home or self-care (01) | DRG 885 ==
LOC: HO.ED 18:09 → HO.PM5 04-26 17:42
PROVIDERS: Admitting Provider Psychiatry & Neurology Psychiatry; Emergency Provider Emergency Medicine; Visit Provider Psychiatry & Neurology Psychiatry
DX: F25.1 Schizoaffective disorder, depressive type (principal); R45.851 Suicidal ideations; F17.210 Nicotine dependence, cigarettes, uncomplicated; Z71.6 Tobacco abuse counseling; F41.9 Anxiety disorder, unspecified; F10.20 Alcohol dependence, uncomplicated; J44.9 Chronic obstructive pulmonary disease, unspecified; Z20.822 Contact with and (suspected) exposure to COVID-19; Y90.6 Blood alcohol level of 120-199 mg/100 ml; Z91.148 Patient's other noncompliance with medication regimen for other reason; Z79.899 Other long term (current) drug therapy
CPT/HCPCS: 36415; 80053; 80061; 80307; 81001; 82607; 82746; 83036; 84439; 84443; 85025; 87635; 93005; 99285; J2426